=== PATIENT | female | born 1995 | race Caucasian/White ===

== ENCOUNTER 2023-10-01 19:32 | Emergency (ER) | payer OTHER, SELFPAY ==
[2023-10-01 19:37] VITALS: BP 112/76
[2023-10-01 19:57] LABS: % Basophils 0.6 % (0-2); % Immature Granulocytes 0.4 % (0-0.5); % Lymphocytes 29.4 % (20.5-51.1); % Monocytes 8.3 % (1.7-9.3); % Neutrophils 58.3 % (42.2-75.2); Absolute Eosinophils 0.2 10^3/uL (0-0.7); Absolute Lymphocytes 1.5 10^3/uL (1.2-3.4); Absolute Monocytes 0.4 10^3/uL (0.1-0.6); Absolute Neutrophils 2.9 10^3/uL (1.4-6.5); Hematocrit 33.2 % (37.0-47.0); Hemoglobin 11.4 g/dL (12.0-16.0); Mean Corp Hgb Conc. 34.3 g/dL (33.0-37.0); Mean Corpuscular Hgb 29.8 pg (27.0-31.0); Mean Corpuscular Volume 86.7 fL (81.0-99.0); Mean Platelet Volume 8.5 fL (7.4-10.4); Nucleated Red Blood Cells % 0 %; Platelet Count 212 10^3/uL (130-400); Red Blood Cell Count 3.83 10^6/uL (4.20-5.40); Red Cell Dist. Width 13.8 % (11.5-14.5)
[2023-10-01 20:09] LABS: HCG, Serum Qualitative Screen Negative
[2023-10-01 20:15] LABS: ALT (SGPT) 19 U/L (0-35); AST (SGOT) 34 U/L (14-36); Albumin 4.5 g/dl (3.5-5.0); Alkaline Phosphatase 118 U/L (38-126); Blood Urea Nitrogen 8 mg/dl (7-17); Carbon Dioxide 27 mmol/L (22-30); Chloride 98 mmol/L (98-107); Glucose 117 mg/dl (70-99); Potassium 3.6 mmol/L (3.5-5.1); Sodium 130 mmol/L (135-145); Total Bilirubin 0.3 mg/dl (0.2-1.3); Total Protein 7.2 g/dl (6.3-8.2); eGFR > 60.00
--- NOTE | 2023-10-01 21:13 | ED.GENMED ---
History of Present Illness
General
Chief Complaint: Abdominal Symptoms
Source: patient
Exam Limitations: none
Time Seen by Provider: 10/01/23 20:59
Nursing documentation reviewed up to this point in time: agreed with
Travel History
Have you had any contact with someone who has COVID-19?: No
Do you have any symptoms of coronavirus? Fever > 100 degrees, chills, cough, shortness of breath, sore throat, loss of taste or smell, muscle aches, or headache?: No
History of Present Illness
History of Present Illness:
27-year-old female presents with abdominal bloating. She states she was vomiting several x 4 and 3 days ago, no vomiting past 2 days. She is nauseous.
She denies fever or chills. She denies UTI symptoms. She had a normal bowel movement this morning.
Patient has a history of epilepsy, interstitial cystitis and endometriosis, epilepsy, factor V Leiden
Past History
Past History
ED Past Medical History: Seizures, Psychiatric, Other (Factor V Leiden deficiency) and Other (Endometriosis, interstitial cystitis followed by Dr. Jauregui)
ED Past Surgical History: Gynecological
Social History
Tobacco: Non-smoker
Alcohol: None
Drug: None
Personal: Single
Review of Systems
Review of Systems
Allergies reviewed?: Yes
All Other Systems: ROS reviewed and negative except as documented in HPI and ROS
Constitutional: Denies fever, fatigue or chills
Respiratory: Denies trouble breathing
Cardiac: Denies chest pain
ABD/GI: Reports abdominal pain (Abdominal bloating), nausea and vomiting; Denies diarrhea or constipated
: Denies dysuria, frequency, flank pain, difficulty voiding or urgency
Musculoskeletal: Reports no symptoms
Skin: Reports no symptoms
Neurological: Reports no symptoms
Phy Exam
Physical Exam
Physical Exam:
GENERAL: No acute distress. A&Ox3.
CONSTITUTIONAL: Afebrile.
EYES: Clear, conjunctivae normal
ENMT: moist mucus membranes, Pharynx nl
RESPIRATORY: Regular respirations, nonlabored, lungs clear.
CARDIOVASCULAR: Regular rate and rhythm, no murmurs, no rubs.
GI: Soft, nondistended, mildly tender epigastric to left upper quadrant, normal BS
MUSCULOSKELETAL: Moves with ease. Well perfused.
SKIN: Warm, dry, pink
PSYCH: Normal mood and affect. Well kept, interactive and appropriate
NEUROLOGIC: Awake, alert and oriented. No focal neurological deficits
Course
Orders/Labs/Results
Orders:
Orders
10/01/23 19:41
Test Result ONCE
10/01/23 19:47
CMP [Comprehensive Metabolic Panel] Urgent
Complete Blood Count/With Diff Urgent
HCG, Serum Qualitative Screen Urgent
Lipase Urgent
Comment: ADDON
10/01/23 21:13
Add On- LAB Urgent
Tests Added?: Lipase
10/01/23 21:20
CR Abdomen - 1 View Urgent
Comment:
Reason For Exam: feels bloated
Abnormal Lab Results
10/01/23
19:47
RBC 3.83 L 10^6/uL
(4.20-5.40)
Hgb 11.4 L g/dL
(12.0-16.0)
Hct 33.2 L %
(37.0-47.0)
Sodium 130 L mmol/L
(135-145)
Creatinine 0.5 L mg/dL
(0.6-1.0)
Glucose 117 H mg/dl
(70-99)
10/01/23 19:47
10/01/23 19:47
Vital Signs
Initial and Last Documented VS:
Initial Vital Signs
Temp Pulse Resp BP Pulse Ox
97.9 F 92 18 112/76 100
10/01/23 19:37 10/01/23 19:37 10/01/23 19:37 10/01/23 19:37 10/01/23 19:37
Last Documented Vital Signs
Temp Pulse Resp BP Pulse Ox
97.9 F 79 18 101/63 100
10/01/23 19:37 10/01/23 22:26 10/01/23 19:37 10/01/23 22:26 10/01/23 19:37
MDM/Problems Addressed
Differential Diagnosis Includes:
27-year-old female presents with abdominal bloating. She states she was vomiting several x 4 and 3 days ago, no vomiting past 2 days. She is nauseous.
She denies fever or chills. She denies UTI symptoms. She had a normal bowel movement this morning.
Patient has a history of epilepsy, interstitial cystitis and endometriosis, epilepsy, factor V Leiden
10/01/2023 2214 PM
CBC, CMP with no clinically significant abnormality
Flatplate abdomen she has moderate amount of stool, no obstruction
Recommended PPI to use until she sees her GI doctor as scheduled early next month.
Pt ambulated out with normal gait.
*Critical Care Note
Total Time (30-74mins, 75-104mins- exclusive of procedures): Not Applicable
ED Attending Note
-
Portions of this chart may have been created with voice recognition software.� Occasional wrong word or��sound alike� substitutions may have occurred due to the inherent limitations of voice recognition software.
Discharge Plan
Departure
Patient Disposition: Home (Routine Discharge)
Date of Disposition: 10/01/23
Time of Disposition: 22:16
Patient with high blood pressure during this ER visit?: No
Condition: Good
Discharge Problem:
Abdominal bloating
Instructions: Constipation, Adult (DC), Abdominal Pain
Prescriptions:
No Action
hydroxyzine HCl 25 mg Tablet
25 mg PO BIDPRN PRN (Reason: anxiety)
escitalopram oxalate [Lexapro] 20 mg Tablet
20 mg PO DAILY
oxcarbazepine 300 mg Tablet
900 mg PO DAILY Qty: 0 0RF
diazepam [Valium] 2 mg Tablet
2 mg PO BID PRN (Reason: anxiety)
Trileptal
amitriptyline
dicyclomine 10 mg capsule
10 mg PO QID PRN (Reason: abdominal pain) Qty: 10 0RF
Referrals:
Your, GI doctor [Other] - Keep scheduled appt
Sathya Morrison MD [Family Provider] -
Activity Restrictions/Additional Instructions:
As we discussed, your blood work shows nothing worrisome.
Your sodium is a little low but that from vomiting and should correct itself
Your abdominal film shows a lot of stool in your colon. This may make you feel bloated. I have given you instructions for constipation.
Drink plenty of fluids.
Try Omeprazole to decrease the acid in your stomach
Keep your appointment with your GI doctor.
Interventions
Interventions:
*Risk Screen - Suicide Last Done: 10/01/23 19:37
*General Assessment Last Done: 10/01/23 22:15
*Neglect/Abuse Screening Last Done: 10/01/23 19:37
*Nursing Disposition Last Done: 10/01/23 22:26
US-Rvonmu-Nkvpmdpzyx Assessment Last Done: 10/01/23 20:36
Discharge Date and Time
Discharge Date/Time: 10/01/23 22:37
[2023-10-01 21:48] LABS: Lipase 217 U/L (23-300)
[2023-10-01 22:15] VITALS: BP 101/63
[2023-10-01 22:26] VITALS: BP 101/63
== END 2023-10-01 22:37 | disposition home or self-care (01) ==
LOC: EMR 19:32
PROVIDERS: EMERGENCY PHYSICIAN Emergency Medicine; FAMILY PHYSICIAN Internal Medicine
DX: R14.0 Abdominal distension (gaseous) (principal); R11.0 Nausea; N30.10 Interstitial cystitis (chronic) without hematuria; G40.909 Epilepsy, unspecified, not intractable, without status epilepticus; D68.51 Activated protein C resistance
CPT/HCPCS: 99284; 74018; 80053; 83690; 84703; 85025

== ENCOUNTER 2024-02-26 06:45 | Day surgery (SDC) | payer OTHER, SELFPAY ==
[2024-02-23 14:42] LABS: Urine Albumin Negative (Neg - Trace); Urine Bilirubin Negative (Negative); Urine Character Clear (Clear); Urine Color Straw; Urine Glucose Negative (Negative); Urine Ketone Negative (Negative); Urine Leukocyte Negative (Negative); Urine Nitrite Negative (Negative); Urine Occult Blood Negative (Negative); Urine Specific Gravity 1.005 (<1.030); Urine Urobilinogen Negative (Neg - 1+)
[2024-02-26] VITALS (9 sets, daily range): BP systolic 92–115; BP diastolic 62–79; BMI 17.3
[2024-02-26] MEDS: NORMOSOL-R 1000 IV (08:05)
[2024-02-26] MEDS: VALIUM 5 MG PO (09:26)
[2024-02-26] MEDS: Pyridium 200 MG PO (09:26)
[2024-02-26] MEDS: ROXICODONE 5 MG PO (09:59)
== END 2024-02-26 11:10 | disposition home or self-care (01) ==
LOC: SDS 06:45
PROVIDERS: ATTENDING PHYSICIAN Urology; FAMILY PHYSICIAN Internal Medicine
DX: N30.10 Interstitial cystitis (chronic) without hematuria (principal)
CPT/HCPCS: 52204; 52260; 88305; 36415; 81003; 88342

== ENCOUNTER 2024-08-19 06:21 | Day surgery (SDC) | payer OTHER, SELFPAY ==
[2024-08-16 13:01] VITALS: BMI 19.1
[2024-08-16 13:38] LABS: Urine Albumin Negative (Neg - Trace); Urine Bilirubin Negative (Negative); Urine Character Clear (Clear); Urine Color Yellow; Urine Glucose Negative (Negative); Urine Ketone Negative (Negative); Urine Leukocyte Trace (Negative); Urine Nitrite Negative (Negative); Urine Occult Blood Negative (Negative); Urine Specific Gravity 1.015 (<1.030); Urine Urobilinogen Negative (Neg - 1+)
[2024-08-16 13:42] LABS: % Basophils 0.8 % (0-2); % Eosinophils 3.4 % (0-6); % Immature Granulocytes 0.3 % (0-0.5); % Lymphocytes 37.4 % (20.5-51.1); % Monocytes 7.9 % (1.7-9.3); % Neutrophils 50.2 % (42.2-75.2); Absolute Eosinophils 0.1 10^3/uL (0-0.7); Absolute Lymphocytes 1.4 10^3/uL (1.2-3.4); Absolute Monocytes 0.3 10^3/uL (0.1-0.6); Absolute Neutrophils 1.9 10^3/uL (1.4-6.5); Hematocrit 35.2 % (37.0-47.0); Hemoglobin 11.3 g/dL (12.0-16.0); Mean Corp Hgb Conc. 32.1 g/dL (33.0-37.0); Mean Corpuscular Hgb 29.8 pg (27.0-31.0); Mean Corpuscular Volume 92.9 fL (81.0-99.0); Mean Platelet Volume 8.9 fL (7.4-10.4); Nucleated Red Blood Cells % 0 %; Platelet Count 169 10^3/uL (130-400); Red Blood Cell Count 3.79 10^6/uL (4.20-5.40); Red Cell Dist. Width 12.2 % (11.5-14.5); White Blood Cell Count 3.8 10^3/uL (4.8-10.8)
[2024-08-16 13:53] LABS: Urine Bacteria Moderate (Negative); Urine Red Blood Cell 0-2 /HPF (0-2); Urine Squamous Cell >30 /LPF (Few); Urine White Cell 0-2 /HPF (0-5)
[2024-08-16 14:04] LABS: Blood Urea Nitrogen 8 mg/dl (7-17); Calcium 8.9 mg/dl (8.4-10.2); Carbon Dioxide 27 mmol/L (22-30); Chloride 100 mmol/L (98-107); Estimated Creatinine Clearance 99 ml/min; Glucose 87 mg/dl (70-99); Potassium 4.1 mmol/L (3.5-5.1); Sodium 137 mmol/L (135-145); eGFR > 60.00
[2024-08-19] VITALS (7 sets, daily range): BP systolic 101–120; BP diastolic 71–92
[2024-08-19] MEDS: NORMOSOL-R/PLASMALYTE-A 1000 IV (08:38)
[2024-08-19] MEDS: SUBLIMAZE 50 MCG IV (10:56)
[2024-08-19] MEDS: Pyridium 200 MG PO (11:09)
[2024-08-19] MEDS: VALIUM 5 MG PO (11:09)
== END 2024-08-19 13:00 | disposition home or self-care (01) ==
LOC: SDS 06:21
PROVIDERS: ATTENDING PHYSICIAN Urology; FAMILY PHYSICIAN Internal Medicine
PROC: 0T7B8ZZ Dilation of Bladder, Via Natural or Artificial Opening Endoscopic (ICD-10-PCS; 2024-08-19)
DX: N30.10 Interstitial cystitis (chronic) without hematuria (principal)
CPT/HCPCS: 52260; 36415; 80048; 81003; 81015; 85025; 87086

== ENCOUNTER 2024-09-02 06:30 | Day surgery (SDC) | payer OTHER, SELFPAY ==
[2024-09-02 08:55] VITALS: BMI 22.8
[2024-09-02 08:57] VITALS: BMI 22.8
[2024-09-02 08:58] VITALS: BP 94/64
[2024-09-02] MEDS: NORMOSOL-R/PLASMALYTE-A 1000 IV (09:26)
[2024-09-02 10:27] VITALS: BP 102/62
[2024-09-02 10:30] VITALS: BP 100/63
[2024-09-02 10:45] VITALS: BP 100/72
[2024-09-02 11:00] VITALS: BP 101/70
[2024-09-02] MEDS: ROXICODONE 5 MG PO (11:02)
[2024-09-02 13:43] LABS: Urine Albumin 2+ (Neg - Trace); Urine Bilirubin Negative (Negative); Urine Character Cloudy (Clear); Urine Color Yellow; Urine Glucose Negative (Negative); Urine Ketone Negative (Negative); Urine Leukocyte 1+ (Negative); Urine Nitrite Negative (Negative); Urine Occult Blood 1+ (Negative); Urine Urobilinogen 2+ (Neg - 1+)
[2024-09-02 15:27] LABS: Urine Squamous Cell >30 /LPF (Few)
[2024-09-02 15:28] LABS: Urine Amorphous Seen
== END 2024-09-02 11:30 | disposition home or self-care (01) ==
LOC: SDS 06:30
PROVIDERS: ATTENDING PHYSICIAN Urology; FAMILY PHYSICIAN Internal Medicine
PROC: 0JH73BZ Insertion of Single Array Stimulator Generator into Back Subcutaneous Tissue and Fascia, Percutaneous Approach (ICD-10-PCS; 2024-09-02)
PROC: 01HY3MZ Insertion of Neurostimulator Lead into Peripheral Nerve, Percutaneous Approach (ICD-10-PCS; 2024-09-02)
DX: N39.41 Urge incontinence (principal)
CPT/HCPCS: 64590; 64561; 72170; 76000; 81003; 81015; 87086; C1767; C1778; C1787; L8681

== ENCOUNTER 2024-10-08 05:54 | Day surgery (SDC) | payer OTHER, SELFPAY ==
[2024-10-08] VITALS (8 sets, daily range): BP systolic 112–130; BP diastolic 69–102; BMI 19.4
[2024-10-08] MEDS: NORMOSOL-R/PLASMALYTE-A 1000 IV (06:39)
[2024-10-08] MEDS: Pyridium 200 MG PO (06:40)
[2024-10-08] MEDS: VANCOCIN 200 IV (06:41)
[2024-10-08] MEDS: DILAUDID 0.5 MG IV ×2 (07:57→08:08)
[2024-10-08] MEDS: ROXICODONE 5 MG PO (08:46)
== END 2024-10-08 09:30 | disposition home or self-care (01) ==
LOC: SDS 05:54
PROVIDERS: ATTENDING PHYSICIAN Urology
DX: T83.590A Infection and inflammatory reaction due to implanted urinary neurostimulation device, initial encounter (principal); T85.840A Pain due to nervous system prosthetic devices, implants and grafts, initial encounter; Y83.8 Other surgical procedures as the cause of abnormal reaction of the patient, or of later complication, without mention of misadventure at the time of the procedure
CPT/HCPCS: 64595; 72170; 76000; 87070; 87075; 87205

== ENCOUNTER 2024-10-24 17:02 | Emergency (ER) | payer OTHER, SELFPAY ==
[2024-10-24 17:08] VITALS: BP 114/80; BMI 20.9
[2024-10-24 17:09] VITALS: BP 114/80
--- NOTE | 2024-10-24 17:16 | ED.GENMED ---
History of Present Illness
General
Chief Complaint: Seizure
Source: patient and ambulance crew
Exam Limitations: none
Time Seen by Provider: 10/24/24 17:06
History of Present Illness
History of Present Illness:
28yoF with a history of seizures on Lamictal presenting via EMS for evaluation after a seizure less than an hour ago. Patient was a front seat passenger in a car. She was yelling at her kids in the backseat and complaining of low back pain. She
then had a witnessed tonic-clonic seizure. Seizure was described as a fixed gaze and generalized shaking with unresponsiveness. Seizure lasted approximately 15 minutes prior to EMS arrival. There was no incontinence or tongue biting during this
episode. Patient was given 4 mg of Versed upon EMS arrival with resolution of the seizure. EMS reports that upon arrival in the parking lot, she again started to have a fixed gaze and stiffening of her upper extremities. This resolved immediately
after being given a 1 mg dose of Versed followed by a 10 cc normal saline flush. There was no postictal period, no vital sign changes, and EMS states this was consistent with a pseudoseizure. Patient reports some low back pain upon arrival. She
had an Interstim device removed from her low back on 10/08/24 for an infection. She denies any fevers, chills, vomiting. She reports compliance with her Lamictal. She follows with [facility].
Past History
Past History
ED Past Medical History: Seizures, Psychiatric, Other (Factor V Leiden deficiency) and Other (Endometriosis, interstitial cystitis followed by Dr. Jauregui)
ED Past Surgical History: Gynecological
Social History
Tobacco: Non-smoker
Alcohol: None
Drug: None
Personal: Single
Phy Exam
General Physical Exam
General Presentation: well appearing and no apparent distress
General age: appears stated age
General Skin: warm and dry
General Habitus: normal
General Mental: alert
ENT Exam
ENT Exam: normocephalic
Eye Exam
Eye Exam: PERRL
Cardiovascular Exam
Cardiovascular Exam: regular rate/rhythm and no murmur
Pulmonary Exam
Pulmonary Exam: lungs clear, no respiratory distress, no rales, no crackles, no rhonchi and no wheezing
Neurological Exam
Neurological Exam: alert
[place] Coma Scale
Eye Opening: Spontaneous
Verbal Response: Oriented
Motor Response: Obeys Commands
GCS Total Score: 15
Musculoskeletal Exam
Musculoskeletal Exam: other (Scar noted in the R lower lumbar region in location of prior Interstim device. No erythema, warmth, or fluctuance noted.)
Skin Exam
Skin Exam: normal color and warm/dry
Psychiatric Exam
Psychiatric Exam: normal mood/affect
Course
Orders/Labs/Results
Orders:
Orders
10/24/24 17:16
Electrocardiogram (*1) Urgent
Reason for Study: Other
Other Reason for Exam: seizure
EKG- Treatment ONCE
Test Result ONCE
10/24/24 17:19
Complete Blood Count/With Diff Urgent
Comprehensive Metabolic Panel Urgent
HCG, Serum Qualitative Screen Urgent
Magnesium Urgent
10/24/24 17:46
Acetaminophen [Tylenol] 1,000 mg PO NOW STA
10/24/24 18:23
Lamotrigine (Lamictal) [S] Urgent
10/24/24 18:41
Ice Pack-Treatment DIRECTED
Location: low back
Ketorolac [Toradol] 15 mg IV NOW STA
Abnormal Lab Results
10/24/24
17:19
WBC 3.9 L 10^3/uL
(4.8-10.8)
RBC 3.44 L 10^6/uL
(4.20-5.40)
Hgb 10.8 L g/dL
(12.0-16.0)
Hct 32.9 L %
(37.0-47.0)
MCH 31.4 H pg
(27.0-31.0)
MCHC 32.8 L g/dL
(33.0-37.0)
Glucose 101 H mg/dl
(70-99)
10/24/24 17:19
10/24/24 17:19
Vital Signs
Initial and Last Documented VS:
Initial Vital Signs
Temp Pulse Resp BP Pulse Ox
98.0 F 86 16 114/80 100
10/24/24 17:08 10/24/24 17:08 10/24/24 17:08 10/24/24 17:08 10/24/24 17:08
Last Documented Vital Signs
Temp Pulse Resp BP Pulse Ox
98.0 F 85 21 105/67 100
10/24/24 17:08 10/24/24 18:45 10/24/24 18:45 10/24/24 18:01 10/24/24 18:45
MDM/Problems Addressed
Differential Diagnosis Includes:
28yoF here after a seizure. Described as generalized tonic-clonic movements. Lasted 15 minutes. Aborted with Versed. Had a second episode in the ambulance on arrival which EMS states was consistent with a pseudoseizure. Hx of epilepsy. She is awake,
alert, with a GCS of 15 on arrival. VSS. No meningismus or focal deficits appreciated. Differential diagnosis includes but is not limited to: breakthrough seizure, PNES, electrolyte abnormality
Initial ED plan: Check CBC, CMP, HCG, Lamictal level, and EKG.
*EKG
Interpreted by ED Provider?: Yes
EKG Intrepretation Date: 10/24/24
Heart Rate: 88
Rate: normal
Rhythm: sinus
[place]: normal axis
Interval: normal interval
QRS Pattern: normal QRS
Ischemia: no ischemia
*Critical Care Note
Total Time (30-74mins, 75-104mins- exclusive of procedures): Not Applicable
Update Note
Update Note:
Labs unremarkable including normal electrolytes. HCG negative. EKG shows NSR without ectopy or ischemic changes. She remains awake and alert on reassessment and is tolerating PO intake. No indication for hospitalization. 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
active route driver salesperson's license. She was advised to call her neurologist tomorrow for f/u and possible medication adjustments. ED return precautions discussed. Patient in agreement with plan and was discharged in stable condition.
ED Attending Note
-
Portions of this chart may have been created with voice recognition software.� Occasional wrong word or��sound alike� substitutions may have occurred due to the inherent limitations of voice recognition software.
Discharge Plan
Departure
Patient Disposition: Home (Routine Discharge)
Date of Disposition: 10/24/24
Time of Disposition: 18:42
Patient with high blood pressure during this ER visit?: No
Discharge Problem:
Breakthrough seizure
Instructions: Seizures, Adult (DC)
Prescriptions:
No Action
escitalopram oxalate [Lexapro] 20 mg Tablet
20 mg PO DAILY
dicyclomine 10 mg capsule
10 mg PO QID PRN (Reason: abdominal pain) Qty: 10 0RF
hydroxyzine HCl 50 mg Tablet
50 mg PO HS
amitriptyline 10 mg Tablet
30 mg PO HS
flaxseed oil
1 cap PO BID
lamotrigine [Lamictal] 100 mg Tablet
100 mg PO BID
diazepam 5 mg Tablet
5 mg PO TID PRN (Reason: flare ups)
nitrofurantoin monohyd/m-cryst [Macrobid] 100 mg Capsule
100 mg PO Q12H
Referrals:
UNKNOWN - PT NOT,INTERVIEWE [Family Provider] -
Activity Restrictions/Additional Instructions:
Continue taking lamotrigine.
Please call your neurologist tomorrow for further instructions and follow-up. Return to the ER with any worsening symptoms or recurrent seizures within 24 hours.
Interventions
Interventions:
*Risk Screen - Suicide Last Done: 10/24/24 17:08
*General Assessment Last Done: 10/24/24 17:08
*Neglect/Abuse Screening Last Done: 10/24/24 17:08
*ED- Fall Risk Assessment Last Done: 10/24/24 19:23
*ED COVID-19 Vaccine History Last Done: 10/24/24 17:08
*Nursing Disposition Last Done: 10/24/24 19:23
ED- Neurological Assessment Last Done: 10/24/24 17:20
ED- Pulmonary Assessment Last Done: 10/24/24 19:23
Discharge Date and Time
Discharge Date/Time: 10/24/24 19:25
Print Language: TRINIDADIAN
[2024-10-24 17:29] LABS: % Eosinophils 5.4 % (0-6); % Immature Granulocytes 0.3 % (0-0.5); % Lymphocytes 39.3 % (20.5-51.1); % Monocytes 8.4 % (1.7-9.3); % Neutrophils 45.6 % (42.2-75.2); Absolute Eosinophils 0.2 10^3/uL (0-0.7); Absolute Lymphocytes 1.5 10^3/uL (1.2-3.4); Absolute Monocytes 0.3 10^3/uL (0.1-0.6); Absolute Neutrophils 1.8 10^3/uL (1.4-6.5); Hematocrit 32.9 % (37.0-47.0); Hemoglobin 10.8 g/dL (12.0-16.0); Mean Corp Hgb Conc. 32.8 g/dL (33.0-37.0); Mean Corpuscular Hgb 31.4 pg (27.0-31.0); Mean Corpuscular Volume 95.6 fL (81.0-99.0); Mean Platelet Volume 8.7 fL (7.4-10.4); Nucleated Red Blood Cells % 0 %; Platelet Count 197 10^3/uL (130-400); Red Blood Cell Count 3.44 10^6/uL (4.20-5.40); Red Cell Dist. Width 13.1 % (11.5-14.5); White Blood Cell Count 3.9 10^3/uL (4.8-10.8)
[2024-10-24 17:43] LABS: HCG, Serum Qualitative Screen Negative
[2024-10-24 17:47] LABS: ALT (SGPT) 20 U/L (0-35); AST (SGOT) 29 U/L (14-36); Albumin 4.5 g/dl (3.5-5.0); Alkaline Phosphatase 82 U/L (38-126); Blood Urea Nitrogen 14 mg/dl (7-17); Calcium 9.2 mg/dl (8.4-10.2); Carbon Dioxide 28 mmol/L (22-30); Chloride 104 mmol/L (98-107); Estimated Creatinine Clearance 106 ml/min; Glucose 101 mg/dl (70-99); Magnesium 2.2 mg/dl (1.6-2.3); Potassium 4.2 mmol/L (3.5-5.1); Sodium 140 mmol/L (135-145); Total Bilirubin 0.4 mg/dl (0.2-1.3); eGFR > 60.00
[2024-10-24 18:01] VITALS: BP 105/67
[2024-10-24] MEDS: TYLENOL 1000 MG PO (18:23)
[2024-10-24] MEDS: TORADOL 15 MG IV (18:52)
== END 2024-10-24 19:25 | disposition home or self-care (01) ==
LOC: EMR 17:02
PROVIDERS: Physician Assistant; EMERGENCY PHYSICIAN Student in an Organized Health Care Education/Training Program
DX: G40.909 Epilepsy, unspecified, not intractable, without status epilepticus (principal); D68.51 Activated protein C resistance
CPT/HCPCS: 99283; 96374; 80053; 80175; 83735; 84703; 85025; 93005

== ENCOUNTER 2024-11-02 19:26 | Inpatient (IN) | payer OTHER, SELFPAY ==
[2024-11-02] VITALS (13 sets, daily range): BP systolic 90–123; BP diastolic 53–95; BMI 19.3
[2024-11-02 16:52] LABS: Glucose - Point of Care 93 mg/dl (70-99)
[2024-11-02] MEDS: KEPPRA 1000 MG IV ×2 (17:06→23:04)
[2024-11-02] MEDS: ATIVAN 2 MG IV ×2 (17:09→18:26)
[2024-11-02] MEDS: NSS 1000 IV (17:10)
[2024-11-02 17:17] LABS: % Eosinophils 3.8 % (0-6); % Immature Granulocytes 0.3 % (0-0.5); % Monocytes 9.4 % (1.7-9.3); % Neutrophils 38.5 % (42.2-75.2); Absolute Eosinophils 0.2 10^3/uL (0-0.7); Absolute Lymphocytes 1.9 10^3/uL (1.2-3.4); Absolute Monocytes 0.4 10^3/uL (0.1-0.6); Absolute Neutrophils 1.5 10^3/uL (1.4-6.5); Hematocrit 37.3 % (37.0-47.0); Hemoglobin 12.3 g/dL (12.0-16.0); Mean Corpuscular Hgb 31.1 pg (27.0-31.0); Mean Corpuscular Volume 94.2 fL (81.0-99.0); Mean Platelet Volume 8.5 fL (7.4-10.4); Nucleated Red Blood Cells % 0 %; Platelet Count 178 10^3/uL (130-400); Red Blood Cell Count 3.96 10^6/uL (4.20-5.40); Red Cell Dist. Width 12.9 % (11.5-14.5); White Blood Cell Count 3.9 10^3/uL (4.8-10.8)
[2024-11-02 17:20] LABS: Lactic Acid 0.9 mmol/L (0.7-2.0)
[2024-11-02 17:25] LABS: HCG, Serum Qualitative Screen Negative
[2024-11-02 17:30] LABS: ALT (SGPT) 19 U/L (0-35); AST (SGOT) 30 U/L (14-36); Albumin 4.4 g/dl (3.5-5.0); Alkaline Phosphatase 78 U/L (38-126); Blood Urea Nitrogen 12 mg/dl (7-17); Calcium 9.5 mg/dl (8.4-10.2); Carbon Dioxide 27 mmol/L (22-30); Chloride 105 mmol/L (98-107); Creatine Phosphokinase 80 U/L (30-135); Glucose 90 mg/dl (70-99); Potassium 4.3 mmol/L (3.5-5.1); Sodium 139 mmol/L (135-145); Total Bilirubin 0.6 mg/dl (0.2-1.3); Total Protein 7.4 g/dl (6.3-8.2); eGFR > 60.00
[2024-11-02 17:32] LABS: Alcohol None Detected
--- NOTE | 2024-11-02 17:32 | ED.GENMED ---
History of Present Illness
General
Chief Complaint: Seizure
Source: patient, records and ambulance crew
Exam Limitations: clinical condition
Time Seen by Provider: 11/02/24 16:51
Nursing documentation reviewed up to this point in time: agreed with
History of Present Illness
History of Present Illness:
28-year-old female with a past medical history of epilepsy on Lamictal who presents to the emergency department via EMS for seizure. Per EMS they received a call that patient was having active seizure witnessed by family. On their arrival she
appeared to be having a tonic-clonic seizure. She was transported to the emergency room. On the way to the emergency room she received 5 mg of IM Versed. No significant response. Patient cannot provide meaningful history on arrival as she
appears to have active seizure activity total duration of activity roughly 20 minutes per EMS. Chart review shows recent visit for breakthrough seizures last week.
Past History
Past History
ED Past Medical History: Seizures, Psychiatric, Other (Factor V Leiden deficiency) and Other (Endometriosis, interstitial cystitis followed by Dr. Jauregui)
ED Past Surgical History: Gynecological
Social History
Tobacco: Non-smoker
Alcohol: None
Drug: None
Personal: Single
Review of Systems
Review of Systems
Unable to obtain full review of systems at this time due to: due to acuity
All Other Systems: Not applicable
Phy Exam
Physical Exam
Physical Exam:
General: Laying in bed contracted with subtle tonic-clonic movements, foaming at the mouth, not responding to verbal or physical stimuli
Head: Normocephalic, atraumatic
Eyes: Conjunctiva normal, eyes deviated towards the right, pupils reactive to light bilaterally
Throat: Copious oral secretions requiring suctioning
Neck: Trachea midline
Lungs: Clear to auscultation bilaterally, no wheezing, rales, rhonchi
Heart: Tachycardia with regular rhythm, no murmurs, gallops, or rubs
Abd: Soft, non distended, no masses
Neuro: Seizure activity noted
Skin: no rash or signs of trauma
Extremities: Warm and well-perfused
Scores
Heart Failure Risk
Heart Failure Risk Score: Not Applicable
Heart Score for Chest Pain Patients
STEMI patient?: Not applicable
Withdrawal Assessment of Alcohol
Withdrawal Assessment Completed?: Not applicable
Course
Orders/Labs/Results
Orders:
Orders
11/02/24 16:48
Electrocardiogram (*1) Urgent
Reason for Study: Syncope
11/02/24 16:49
EKG- Treatment ONCE
11/02/24 16:50
Drug Screen, Urine [Urine Drug Abuse Screen] Urgent
Date Specimen was Collected: 11/02/24
Time Specimen was Collected: 16:51
Test Result ONCE
11/02/24 16:52
CT Head W/o Iv Contrast Urgent
Comment:
Reason For Exam: seizures
Levetiracetam Injectable [Keppra] 1,000 mg .ROUTE .STK-MED ONE
11/02/24 16:53
Lorazepam [Ativan] 2 mg IM NOW STA
Lorazepam [Ativan] 2 mg IV NOW STA
11/02/24 16:54
Levetiracetam Injectable [Keppra] 1,000 mg IV NOW STA
11/02/24 16:56
Alcohol Urgent
Complete Blood Count/With Diff Urgent
Comprehensive Metabolic Panel Urgent
Creatine Phosphokinase Urgent
HCG, Serum Qualitative Screen Urgent
Keppra (Levetiracetam) [S] Urgent
Lactic Acid Urgent
11/02/24 17:03
NEUROLOGY CONSULT Urgent
Consulting Provider: Yancy Field
Was physician already notified: Yes
11/02/24 17:09
0.9% Sodium Chloride 1000 ml [Nss] 1,000 ml IV BOLUS
Abnormal Lab Results
11/02/24
16:56
WBC 3.9 L 10^3/uL
(4.8-10.8)
RBC 3.96 L 10^6/uL
(4.20-5.40)
MCH 31.1 H pg
(27.0-31.0)
Neutrophils % 38.5 L %
(42.2-75.2)
Monocytes % 9.4 H %
(1.7-9.3)
11/02/24 16:56
11/02/24 16:56
Vital Signs
Initial and Last Documented VS:
Initial Vital Signs
Temp Pulse Resp BP Pulse Ox
37.2 C 112 16 123/95 97
11/02/24 16:48 11/02/24 16:48 11/02/24 16:48 11/02/24 16:48 11/02/24 16:48
Last Documented Vital Signs
Temp Pulse Resp BP Pulse Ox
37.2 C 78 19 95/62 98
11/02/24 16:48 11/02/24 18:00 11/02/24 18:00 11/02/24 18:00 11/02/24 18:00
MDM/Problems Addressed
Differential Diagnosis Includes:
Seizure, pseudoseizure, withdrawal
MDM/Problems Addressed:
28-year-old female presents for evaluation of seizure�witnessed by family, EMS gave 5 mg of IM Versed without improvement. Second visit for breakthrough seizures. She had copious oral secretions on arrival, upper airway suctioned and nasal trumpet
applied; oxygenation acceptable with these measures. She did appear to wince to nasal trumpet insertion. She was given 2 mg of IV Ativan and 1 g of Keppra IV on arrival. Seizure activity stopped at that point but patient still lethargic. Labs
sent off including a CBC and a CMP, lactate, CPK, hCG. Check UDS and alcohol level. Chart review shows no document history of substance use. Will check CT head with multiple breakthrough seizures this week. Plan likely for admission for
monitoring and medication titration, neurology consultation. I did discuss the case with neurology to consult.
Labs reviewed: CBC and CMP no clinically significant abnormalities. She does notably have a normal lactate level and normal CPK which seem inconsistent with diagnosis of prolonged seizure however given continued postictal state and prolonged
episode today will admit for neurology consultation and monitoring for seizure activity. Case discussed with hospitalist for admission.
Reassessment patient still lethargic and postictal. Updated family who are at bedside. Continue to monitor.
Chronic conditions affecting care:
Epilepsy
*Radiology
Radiology exam reviewed: radiology read reviewed
*Pulse Oximetry
Patient hypoxic: no
*EKG
Interpreted by ED Provider?: Yes
Heart Rate: 92
Rate: normal
Rhythm: sinus
[place]: normal axis
Interval: normal interval
QRS Pattern: right bundle branch block (Incomplete)
Ischemia: no ischemia
*Critical Care Note
Total Time (30-74mins, 75-104mins- exclusive of procedures): Not Applicable
Data Reviewed
Review of Other/Old Records Reveals: Labs and Records
Source: patient, records and ambulance crew
Patient Management
Discussion with other providers: Hospitalist (Discussed with hospitalist) and Gear Keeper (Discussed with neurologist)
Escalation/DeEscalation of care consider admission/obs:
Admission indicated
ED Attending Note
-
Portions of this chart may have been created with voice recognition software.� Occasional wrong word or��sound alike� substitutions may have occurred due to the inherent limitations of voice recognition software.
Discharge Plan
Departure
Patient Disposition: Admit
Date of Disposition: 11/02/24
Time of Disposition: 17:43
Admit to doctor: A[facility]
Presentation/result/management discussed w/ accepting MD/DO: Hospitalist
Discharge Problem:
Breakthrough seizure
Prescriptions:
No Action
escitalopram oxalate [Lexapro] 20 mg Tablet
20 mg PO DAILY
dicyclomine 10 mg capsule
10 mg PO QID PRN (Reason: abdominal pain) Qty: 10 0RF
hydroxyzine HCl 50 mg Tablet
50 mg PO HS
amitriptyline 10 mg Tablet
30 mg PO HS
flaxseed oil
1 cap PO BID
lamotrigine [Lamictal] 100 mg Tablet
100 mg PO BID
diazepam 5 mg Tablet
5 mg PO TID PRN (Reason: flare ups)
nitrofurantoin monohyd/m-cryst [Macrobid] 100 mg Capsule
100 mg PO Q12H
Interventions
Interventions:
*Risk Screen - Suicide Last Done: 11/02/24 17:12
*General Assessment Last Done: 11/02/24 16:48
*Neglect/Abuse Screening Last Done: 11/02/24 17:12
*ED COVID-19 Vaccine History Last Done: 11/02/24 16:48
ED- Cardiac Assessment Last Done: 11/02/24 16:48
ED- Neurological Assessment Last Done: 11/02/24 16:48
ED- Pulmonary Assessment Last Done: 11/02/24 16:48
Discharge Date and Time
Print Language: BAHRAINI
--- NOTE | 2024-11-02 18:18 | HPS.HSE ---
Addendum entered and electronically signed by Breanna Chavarria, DO 11/02/24 20:21:
Addition to assessment she has history of chronic cystitis
- She recently had a lumbar stim unit removed
Addendum entered and electronically signed by Breanna Chavarria, DO 11/02/24 20:19:
Have seen and examined the patient. I reviewed the patient with Daniella and agree with her history and physical and assessment and plan of care as per below. The patient is a 28-year-old woman with past medical history significant for epileptic
seizures, had a recent video EEG monitor at an outside hospital that was positive for epileptiform activity per the patient's mom, who presents to the emergency department secondary to witnessed active seizure generalized tonic-clonic. It was
witnessed by her mother. Of note she gets 3-4 seizures per month. EMS was called and she was brought to the emergency department. She received IM Versed [address] to the ED. No loss of bowel or bladder function, no tongue biting;she also
had 2 witnessed seizures in the emergency department. She has had a total of 5 mg of IV Ativan in the emergency department. In between seizures she has been somnolent and sleeping. She did wake up at 1 point and look at me. Right after her
second seizure, she was able to look at me point, at my name and say my name. The ED provider discussed the case with neurology who recommended continuing her on the same dose of Keppra and using Ativan as needed. She is also on Lamictal.
Vital signs stable patient afebrile
Neuro-she had a generalized tonic-clonic seizure when I was in the room with her. Her head went back and she was groaning. Her eyes rolled back in her head. Her right arm and hand contracted in her left arm was rigid.
She was given 1 mg of IV Ativan and she woke up and was able to look at my face and name tag and point to it. No postictal focal neurologic deficits. She is somnolent.
Cardiovascular regular rate and rhythm no murmurs or gallops
Lungs clear to auscultation bilaterally no wheezes rales rhonchi
# Recurrent breakthrough seizure, uncontrolled with underlying known epilepsy
- Appreciate neurology recommendations
- Admit to IMU
- Continue Keppra, and Lamictal
- Use IV Ativan as needed
- Seizure precautions
#depression/ anxiety
- Lexapro�
- Diazepam prn
- Hydroxyzine 25 mg as needed for sleep
- Amitriptyline 30 mg at bedtime
#Factor V Leiden deficiency
#History of CLL at 2 yo
Original Note:
Family Physician
-
Family Physician:
Chief Complaint
-
seizure.
History of Present Illness
28-year-old female with a past medical history of epilepsy on Lamictal who presents to the emergency department via EMS for seizure. Per EMS they received a call that patient was having active seizure witnessed by family. as per family, she does
get 3-4 seizure per month. when she gets the seizure, its multiple times a day. patient denied RODRIGUES,dizzy or syncope. denied fever, chills, chest pain,sob. denied abdominal pain,n,v,d. denied dysuria or hematuria.
Patient received a dose of Keppra, Ativan, normal saline in ER. Admitting for further management
Medical History
Past Medical History
Past Medical History: Reports Other
Additional Past Medical History:
Depression
Cystitis
Endometriosis
Factor V Leyden
Leukemia anxiety depression epilepsy
Past Surgical History: Reports Other
Additional Past Surgical History:
Lab
hydrodistention
InterStim trial, which was removed due to an infection
Social History
Tobacco: Smoker (Half a pack)
Alcohol: None
Drug: None
Living: With Family
Family History
Family History: Not pertinent
Allergies / Home Medications
Allergies reflects when Allergies were last updated in [facility].
Home Medications with original date entered in [facility]
Allergy/Medication List:
Allergies
Allergy/AdvReac Type Severity Reaction Status Date / Time
No Known Allergies Allergy Verified 10/08/24 06:14
Home Medications
escitalopram oxalate 20 mg tablet (Lexapro) 20 mg PO DAILY Mental Health/Anxiety 06/06/22
dicyclomine 10 mg capsule 10 mg PO QID PRN abdominal pain #10 caps 07/23/23
amitriptyline 10 mg tablet 30 mg PO HS 02/21/24
flaxseed oil 1 cap PO BID 02/21/24
hydroxyzine HCl 50 mg tablet 50 mg PO HS 02/21/24
lamotrigine 100 mg tablet (Lamictal) 100 mg PO BID 02/21/24
diazepam 5 mg tablet 5 mg PO TID PRN flare ups 10/07/24
nitrofurantoin monohydrate/macrocrystals 100 mg capsule (Macrobid) 100 mg PO Q12H 10/07/24
Review of Systems
-
Constitutional: Reports No Symptoms
EENT: Reports No Symptoms
Respiratory: Reports No Symptoms
Cardiac: Reports No Symptoms
Abdomen/GI: Reports No Symptoms
: Reports No Symptoms
Musculoskeletal: Reports No Symptoms
Skin: Reports No Symptoms
Neurological: Reports No Symptoms
Endocrine: Reports No Symptoms
Hematologic/Lymphatic: Reports No Symptoms
Psych: Reports No Symptoms
Physical Exam
Vital Signs
Vital Signs
Temp Pulse Resp BP Pulse Ox
98.9 F 78 19 95/62 98
11/02/24 16:48 11/02/24 18:00 11/02/24 18:00 11/02/24 18:00 11/02/24 18:00
Physical Exam
General: Well Developed, Well Nourished and No Apparent Distress
HEENT: NormoCephalic, Moist mucous membranes and Atraumatic
Respiratory: Clear
Cardiac: S1/S2 and Regular Rhythm; No Murmur or Rub
GI: Soft, Non Tender, Non Distended and Normal Bowel Sounds; No Organomegaly
Rectal: Deferred by Provider
Musculoskeletal: No Clubbing, No Cyanosis and No Edema
Skin: No Rash
Neuro: Nonfocal/grossly intact
Psych: Calm
Laboratory Results
-
11/02/24 16:56
11/02/24 16:56
Laboratory Results
Lactic Acid 0.9 mmol/L (0.7-2.0) 11/02/24 16:56
Total Bilirubin 0.6 mg/dl (0.2-1.3) 11/02/24 16:56
AST 30 U/L (14-36) 11/02/24 16:56
ALT 19 U/L (0-35) 11/02/24 16:56
Alkaline Phosphatase 78 U/L (38-126) 11/02/24 16:56
Data Reviewed
-
CT Scan: Report Reviewed by me
Lab Data: Labs Reviewed by me
Impression/Plan
-
# Breakthrough seizure
# History of epilepsy
- Patient received 5 mg IM Versed, 2 mg IV Ativan and 1 g Keppra
- Keppra and Ativan continued
- Neurology consulted
- Head CT with no acute findings
- Lamictal po continued
#depression/ anxiety
- on Lexapro�
- Diazepam
- Hydroxyzine 25 mg as needed for sleep
- Amitriptyline 30 mg at bedtime
#Factor V Leiden deficiency
#History of CLL
SCD
Full code
[2024-11-02] MEDS: ATIVAN 1 MG IV (19:18)
[2024-11-02] MEDS: ELAVIL 30 MG PO (22:48)
[2024-11-02] MEDS: LAMICTAL 100 MG PO (22:49)
[2024-11-02] MEDS: TYLENOL 650 MG PO (22:52)
[2024-11-03] VITALS (11 sets, daily range): BP systolic 82–98; BP diastolic 44–65
--- NOTE | 2024-11-03 04:09 | PTCARENOTE ---
Pt incontinent urine just prior to arrival to floor last night. No void since then. Pt states she does not feel the need to void but did attempt bedpan without result. Attempted to bladder scan but unable to locate any urine. Lower abdomen soft at
present time. Will continue to monitor.
--- NOTE | 2024-11-03 04:26 | PTCARENOTE ---
Addendum entered by Estephania Phillips RN 11/03/24 05:37:
250ml NS bolus ordered and currently infusing. Will continue to monitor.
Original Note:
Pt's BP's have been soft overnight. Currently 84/62 MAP 69. HR 64. Per pt states her systolic at baseline is in the 80's. After she came up from ED last night she received Keppra, Lamictal and Elavil. She is asymptomatic. Hepbryson FERRARI TT'd and made
aware and stated she would look into pt's chart to assess. Waiting to here back. Currently pt resting comfortably sleeping. Remains on seizure precautions. No seizure activity noted since arriving to floor last evening. Call barrera remains within
reach. Will continue to monitor.
[2024-11-03 04:31] LABS: Hematocrit 31.8 % (37.0-47.0); Hemoglobin 10.5 g/dL (12.0-16.0); Mean Platelet Volume 9.2 fL (7.4-10.4); Platelet Count 169 10^3/uL (130-400); Red Blood Cell Count 3.28 10^6/uL (4.20-5.40); Red Cell Dist. Width 12.9 % (11.5-14.5); White Blood Cell Count 4.3 10^3/uL (4.8-10.8)
[2024-11-03] MEDS: NSS 250 IV (05:33)
--- NOTE | 2024-11-03 08:49 | CON.NEURO ---
Consultation
Order
Date of Consultation: 11/03/24
Requesting Provider: Benjamín Siddiqui MD
Reason for Consult: Seizures
Neurology Consultation Note.
HPI: This is a 28-year-old woman who presented to [facility] on 11/02[facility]24 with a spell. According to EMR patient had prolonged bout of abnormal movements lasting over 20 minutes on the day of presentation.
She received 5 mg of diazepam by EMS as well as 5 mg of lorazepam in the ER.
Ms. Mosley reports taking her lamotrigine late on the day of the incident, at 2:30 PM instead of her usual 9 AM dose. Prior to the seizure, she experienced an aura, characterized by feeling slow, and having difficulty finishing sentences. The
seizure occurred in the car after leaving her boyfriend's house. The patient has no recollection of the event and relies on information from her boyfriend and mother.
Yelitza reports a history of both epileptic and non-epileptic seizures starting at the age of 19. She typically experiences cluster seizures. The patient has been prescribed diazepam for 'bladder flare-ups' since May, which she takes as
needed.
Ms. Mosley was reportedly was weaned off Trilepta and kept of Lamictal monotherapy after EMU admission at [facility].
Last seizure was on 10/24/2024. At that time she was seen at ER and had therapeutic Lamictal level.
Additionally, Ms. Mosley reports chronic back pain starting from a recent surgical incision site and extending up her right side. She mentions a recent ER visit on October 14, where a CT scan revealed a pocket of fluid.
Prior AED: LEV, Trileptal
ER VS: 123/95, 112, afebrile
EKG:NSR,QTc Int : 450 ms
PDMP:Diazepam 5 Mg�90 tablets filled in on 10/03/2024, 08/29/2024, 07/18/2024. Oxycodone-Acetaminophen 5-325 10 tablets filled in on 10/08/2024, 09/02/2024 prescribed by urology. Private pay�5
Labs: WBCs�3.9, normal glucose, sodium, creatinine, calcium, CK, prolactine, EtOH�negative
CT head wo contrast�unremarkable.
PMH: focal epilepsy, PNES, factor V Leiden deficiency, urge incontinence, endometriosis, sinus disease, NORBERTO
PSH: InterStim(removed on 10/08/2024)
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
All:Nitrofurantoin
ROS: Constitutional: Negative. Negative for chills, fever and unexpected weight change.
HENT: Negative for ear pain, hearing loss, tinnitus and trouble swallowing.
Eyes: Negative. Negative for photophobia, pain and visual disturbance.
Respiratory: Negative for cough, choking and shortness of breath.
Cardiovascular: Negative for chest pain, palpitations and leg swelling.
Gastrointestinal: Negative for abdominal pain and vomiting.
Endocrine: Negative. Negative for cold intolerance.
Genitourinary: Positive for urinary urgency, bladder spasms
Musculoskeletal: Positive for mild [id number]
Skin: Negative for rash.
Allergic/Immunologic: Negative. Negative for immunocompromised state.
Neurological: Negative for dizziness, tremors, seizures, speech difficulty, numbness and headaches.
General: Well developed. In no acute distress.
Cardio: Regular rate and rhythm without murmur. Extremities are without cyanosis or edema.
Neuro:
Mental Status: Alert, oriented to person, place, and date. Normal attention and recall. Good fund of knowledge. Follows complex requests across the midline. Comprehension, naming, and repetition intact. Immediate and delayed recall 3/3.
Cranial Nerves: Pupils are equally round and reactive to light. EOMs full. Visual ribera full to confrontation. No ptosis. No nystagmus. V1-V3 intact to light touch and pinprick bilaterally, symmetric. Face symmetric. Normal hearing AU. The
palate elevated well. SCMs and traps 5/5. Tongue midline. No dysarthria.
Motor: Normal bulk and tone. No pronator or arm drift. Strength 5/5 throughout. No clonus.
Reflexes: 2+ throughout the upper extremities and knees. 2/2 in AJs. Plantar responses flexor bilaterally.
Sensory: Normal vibration and JPS.
Coordination: No dysmetria or tremor.
Gait: deferred
Assessment and Plan:
I. Focal epilepsy with provoked seizure due to missed dose of AED
II. PNES
III. NORBERTO
-Seizure precautions
-Sleep hygiene
-Increase Lamictal to 150 mg twice daily
-Follow-up urine tox
-No driving
-Use a weekly pill organizer to keep track of doses, set alarms on the phone or watch to remind you of medication times, use medication reminders apps that send notification
-Consider using automatic pill dispenser stat release medications at said time
-Outpatient follow-up with Dr. Genny Greenberg([facility])
I personally reviewed all radiology and labs along with past medical records pertinent to current medical problems. Total time spent in patient care is 60 minutes.
Thank you for allowing us to participate in the care of this patient. Please do not hesitate to contact us with any questions or concerns.
Subjective/Objective
Subjective Data
Date of Service: November 03, 2024
Objective Data
Vital Signs
Temp Pulse Resp BP Pulse Ox
36.4 C 79 17 86/52 100
11/03/24 07:00 11/03/24 08:00 11/03/24 08:00 11/03/24 06:41 11/03/24 08:00
Lab Results
11/03/24 03:31
11/02/24 16:56
Sodium 139 mmol/L (135-145) 11/02/24 16:56
Potassium 4.3 mmol/L (3.5-5.1) 11/02/24 16:56
BUN 12 mg/dl (7-17) 11/02/24 16:56
Glucose 90 mg/dl (70-99) 11/02/24 16:56
Calcium 9.5 mg/dl (8.4-10.2) 11/02/24 16:56
Patient Allergies
No Known Allergies Allergy (Verified 10/08/24 06:14)
Medications
-
Active Medications
Generic Name Dose Route Start Last Admin
Trade Name Freq PRN Reason Stop Dose Admin
Acetaminophen 650 mg 11/02/24 21:44 11/02/24 22:52
Acetaminophen 325 Mg Tablet PO 11/30/24 21:43 650 mg
Q4HPRN PRN Administration
mild pain/RODRIGUES/temp> 100.4F
Amitriptyline HCl 30 mg 11/02/24 22:00 11/02/24 22:48
Amitriptyline 10 Mg Tablet PO 11/30/24 21:59 30 mg
HS KATE Administration
Bisacodyl 10 mg 11/02/24 21:44
Bisacodyl 10 Mg Rectal Suppository RECTAL 11/30/24 21:43
[id number] PRN
constipation
Escitalopram Oxalate 20 mg 11/03/24 08:00
Escitalopram 20 Mg Tablet PO 12/01/24 07:59
DAILY KATE
Lamotrigine 100 mg 11/02/24 21:44 11/02/24 22:49
Lamotrigine 100 Mg Tablet PO 11/30/24 21:43 100 mg
BID KATE Administration
Levetiracetam 1,000 mg 11/02/24 21:44 11/02/24 23:04
Levetiracetam (100 Mg/Ml) 500 Mg/5 Ml Vial IV 11/30/24 21:43 1,000 mg
Q12 KATE Administration
Lorazepam 1 mg 11/02/24 19:21
Lorazepam 2 Mg/Ml Vial IV 11/30/24 19:20
Q4HPRN PRN
seizure
Polyethylene Glycol 17 grams 11/02/24 21:44
Polyethylene Glycol Powder 17 Grams Packet PO 11/30/24 21:43
DAILYPRN PRN
constipation
Senna/Docusate Sodium 1 tablet 11/02/24 21:44
Docusate W/Senna (Margie-Colace) Tablet PO 11/30/24 21:43
BIDPRN PRN
constipation
Home Medications
�Medication �Instructions �Recorded
escitalopram oxalate 20 mg tablet 20 mg PO DAILY Mental 06/06/22
(Lexapro) Health/Anxiety
amitriptyline 10 mg tablet 30 mg PO HS 02/21/24
lamotrigine 100 mg tablet 100 mg PO BID 02/21/24
(Lamictal)
diazepam 5 mg tablet 5 mg PO TID PRN flare ups 10/07/24
flaxseed oil 1,000 mg capsule 1,000 mg PO BID 11/02/24
hydroxyzine HCl 25 mg tablet 25 mg PO HS 11/02/24
phenazopyridine 99.5 mg tablet 99.5 mg PO TID PRN uti prevention 11/02/24
(Azo Urinary Pain Relief)
Vital Signs and Labs
-
Vital Signs and Labs:
Vital Signs
Temp Pulse Resp BP Pulse Ox
36.4 C 79 17 86/52 100
11/03/24 07:00 11/03/24 08:00 11/03/24 08:00 11/03/24 06:41 11/03/24 08:00
Lab Results
11/03/24 03:31
11/02/24 16:56
Sodium 139 mmol/L (135-145) 11/02/24 16:56
Potassium 4.3 mmol/L (3.5-5.1) 11/02/24 16:56
BUN 12 mg/dl (7-17) 11/02/24 16:56
Glucose 90 mg/dl (70-99) 11/02/24 16:56
Calcium 9.5 mg/dl (8.4-10.2) 11/02/24 16:56
Medications
-
Medications:
Generic Name Dose Route Start Last Admin
Trade Name Freq PRN Reason Stop Dose Admin
Acetaminophen 650 mg 11/02/24 21:44 11/02/24 22:52
Acetaminophen 325 Mg Tablet PO 11/30/24 21:43 650 mg
Q4HPRN PRN Administration
mild pain/RODRIGUES/temp> 100.4F
Amitriptyline HCl 30 mg 11/02/24 22:00 11/02/24 22:48
Amitriptyline 10 Mg Tablet PO 11/30/24 21:59 30 mg
HS KATE Administration
Bisacodyl 10 mg 11/02/24 21:44
Bisacodyl 10 Mg Rectal Suppository RECTAL 11/30/24 21:43
[id number] PRN
constipation
Escitalopram Oxalate 20 mg 11/03/24 08:00
Escitalopram 20 Mg Tablet PO 12/01/24 07:59
DAILY KATE
Lamotrigine 100 mg 11/02/24 21:44 11/02/24 22:49
Lamotrigine 100 Mg Tablet PO 11/30/24 21:43 100 mg
BID KATE Administration
Levetiracetam 1,000 mg 11/02/24 21:44 11/02/24 23:04
Levetiracetam (100 Mg/Ml) 500 Mg/5 Ml Vial IV 11/30/24 21:43 1,000 mg
Q12 KATE Administration
Lorazepam 1 mg 11/02/24 19:21
Lorazepam 2 Mg/Ml Vial IV 11/30/24 19:20
Q4HPRN PRN
seizure
Polyethylene Glycol 17 grams 11/02/24 21:44
Polyethylene Glycol Powder 17 Grams Packet PO 11/30/24 21:43
DAILYPRN PRN
constipation
Senna/Docusate Sodium 1 tablet 11/02/24 21:44
Docusate W/Senna (Margie-Colace) Tablet PO 11/30/24 21:43
BIDPRN PRN
constipation
Home Medications
-
Home Medications
escitalopram oxalate 20 mg tablet (Lexapro) 20 mg PO DAILY Mental Health/Anxiety 06/06/22
amitriptyline 10 mg tablet 30 mg PO HS 02/21/24
lamotrigine 100 mg tablet (Lamictal) 100 mg PO BID 02/21/24
diazepam 5 mg tablet 5 mg PO TID PRN flare ups 10/07/24
flaxseed oil 1,000 mg capsule 1,000 mg PO BID 11/02/24
hydroxyzine HCl 25 mg tablet 25 mg PO HS 11/02/24
phenazopyridine 99.5 mg tablet (Azo Urinary Pain Relief) 99.5 mg PO TID PRN uti prevention 11/02/24
[2024-11-03] MEDS: LEXAPRO 20 MG PO (09:07)
[2024-11-03] MEDS: LAMICTAL 100 MG PO (09:07)
[2024-11-03] MEDS: KEPPRA 1000 MG IV (09:07)
--- NOTE | 2024-11-03 10:01 | PTCARENOTE ---
Pt's BP low in the 80s throughout night and this morning. at the bedside and made aware. Patient reports just feeling 'exhausted.' She denies any pain. Pt does report being hungry, patient provided with menu and phone to call for breakfast.
Pt reports no need to void at this time. Assessment, care and VS as charted.
[2024-11-03 10:37] LABS: Prolactin 15.6 ng/ml (3.0-18.6)
--- NOTE | 2024-11-03 12:56 | W.PN.HOSP.TC ---
Today's Communication/Plan
-
Pending neurology eval
Assessment / Plan
Assessment / Plan
Impression :
Patient is 28 years old with history of epilepsy, cystitis with recent bladder treatment, came to the ER with status epilepticus, received Keppra IV in the ER, continued on Lamictal, pending neurology evaluation .
assessment/plan
Recurrent breakthrough seizure, uncontrolled with underlying known epilepsy
Admitted to IMU
CT head negative
For now we will continue Keppra, and Lamictal
- Use IV Ativan as needed
- Seizure precautions
-Pending neurology evaluation
History of depression/ anxiety
- Lexapro�
- Diazepam prn
- Hydroxyzine 25 mg as needed for sleep
- Amitriptyline 30 mg at bedtime
#Factor V Leiden deficiency
#History of CLL at 2 yo
CODE STATUS: Full code
DVT prophylaxis: Lovenox
Diet: Regular diet
Total time spent on today's encounter was 65 minutes which included time spent in counseling the patient/family regarding diagnosis and treatment plan as listed above, goals of care, and symptom management. Case was discussed with nursing staff,
specialists, and care coordinators/case management. All labs and imaging personally reviewed by me. Remainder the time spent in detailed review of previous records, lab data, imaging, and other medical provider documentation.
Anticipated Discharge: > 48 hours
Subjective/Interval History
-
Date of Service: November 03, 2024
Patient admitted yesterday with status practice, received Keppra IV in the ER and Ativan.
Feeling better today, complaining of lumbar back pain from seizure and headaches.
Blood pressure is low but patient stated that is normal for her, pending neurology evaluation.
Objective Data
-
Labs:
Laboratory Results
11/03/24
03:31
WBC 4.3 L
Hgb 10.5 L
Hct 31.8 L
Plt Count 169
Vital Signs:
Vital Signs
Temp Pulse Resp BP Pulse Ox
97.7 F 96 21 82/55 99
11/03/24 11:05 11/03/24 11:00 11/03/24 11:00 11/03/24 10:00 11/03/24 11:28
I&O
11/02/24 11/03/24 11/04/24
06:59 06:59 06:59
Intake Total 550 / 550 480 / 480
Balance 550 / 550 480 / 480
Physical Exam
-
General: Well Developed, Well Nourished, No Apparent Distress and Comfortable
HEENT: Normocephalic, Atraumatic, Moist Mucous Membranes, No Ptosis, PERRLA and Nose Appears Normal
Respiratory: Clear to Auscultation and Non Labored Respirations
Cardiac: Regular Rhythm and S1/S2
Breast: Deferred by me
GI: Soft, Nontender, Nondistended and Normal Bowel Sounds
Genito-urinary: No Costovertebral Tender
Musculoskeletal: No Clubbing, No Cyanosis and No Edema
Skin: Warm
Neuro: Awake, Alert, Oriented, AO x 3 and No Motor Deficits
Psych: Calm
Data Reviewed
-
Diagnostic Radiology: Image personally visualized and interpreted and Report Reviewed by me
CT Scan: Image personally visualized and interpreted and Report Reviewed by me
Ultrasound: Image personally visualized and interpreted and Report Reviewed by me
MRI: Image personally visualized and interpreted and Report Reviewed by me
Medical Tests (Nuc Med, Echo etc): Image personally visualized and interpreted and Report Reviewed by me
Labs: Labs Reviewed by me
Old Records: Reviewed
[2024-11-03] MEDS: TORADOL 30 MG IV (12:59)
--- NOTE | 2024-11-03 13:34 | W.DCSUMMARY ---
Discharge Summary
Discharge Data
Date of Admission: 11/02/24
Date of Discharge: 11/03/24
-
Pending Results: No
Hospital Course
Hospital course
Patient is 28 years old with history of epilepsy, cystitis with recent bladder treatment, came to the ER with status epilepticus, received Keppra IV in the ER, continued on Lamictal, seen by neurology who recommended increasing Lamictal to 150 twice
daily and discharge.
During hospitalization patient was treated [facility]
Recurrent breakthrough seizure, uncontrolled with underlying known epilepsy
Admitted to IMU
CT head negative
For now we will continue Keppra, and Lamictal
- Use IV Ativan as needed
- Seizure precautions
seen by neurology who recommended increasing Lamictal to 150 twice daily and discharge.
History of depression/ anxiety
- Lexapro�
- Diazepam prn
- Hydroxyzine 25 mg as needed for sleep
- Amitriptyline 30 mg at bedtime
#Factor V Leiden deficiency
#History of CLL at 2 yo
CODE STATUS: Full code
DVT prophylaxis: Lovenox
Diet: Regular diet
Total time spent on today's encounter was 40 minutes which included time spent in counseling the patient/family regarding diagnosis and treatment plan as listed above, goals of care, and symptom management. Case was discussed with nursing staff,
specialists, and care coordinators/case management. All labs and imaging personally reviewed by me. Remainder the time spent in detailed review of previous records, lab data, imaging, and other medical provider documentation.
Anticipated Discharge: Today
Discharge Plan
-
Patient Disposition: Home (Routine Discharge)
Discharge Diagnosis/Procedures: Seizure
Condition: Good
Diet: As tolerated
Activity: As tolerated
Driving Restrictions: No driving
Referrals:
Ronceverte, neurology [Other]
Sathya Morrison MD [Family Provider] -
Prescriptions:
New
lamotrigine [Lamictal] 150 mg tablet
150 mg PO BID 30 Days Qty: 60 0RF
Continued
escitalopram oxalate [Lexapro] 20 mg Tablet
20 mg PO DAILY
amitriptyline 10 mg Tablet
30 mg PO HS
diazepam 5 mg Tablet
5 mg PO TID PRN (Reason: flare ups)
flaxseed oil 1,000 mg Capsule
1,000 mg PO BID
hydroxyzine HCl 25 mg Tablet
25 mg PO HS
Azo Urinary Pain Relief 99.5 mg Tablet
99.5 mg PO TID PRN (Reason: uti prevention)
Discontinued
lamotrigine [Lamictal] 100 mg Tablet
100 mg PO BID
Discharge Orders:
Discharge Patient (As Directed); Ordered 11/03/24
Ordered By: Jean Allen
Discharge Date and Time
Print Language: URDU
--- NOTE | 2024-11-03 14:02 | CM ---
Pt reports she lives in a split level home; 5STE, 5 steps to bed/bath
Independent with ADL's, Employed PT
DME - rolling walker
SNF - no past hx
HH - has in past - unsure of agency
Has ride at discharge
PCP - Sathya Morrison
Pharm - [facility]
Given information on Advance Directives
Plan - home no needs anticipated
[2024-11-04 18:26] LABS: Keppra (Levetiracetam) 78 ug/mL (10-40)
== END 2024-11-03 15:18 | disposition home or self-care (01) | DRG 101 ==
LOC: IMU 19:26
PROVIDERS: Registered Nurse; ADMITTING PHYSICIAN Internal Medicine; ATTENDING PHYSICIAN General Practice; CONSULT PHYSICIAN Psychiatry & Neurology Neurology; EMERGENCY PHYSICIAN Emergency Medicine; FAMILY PHYSICIAN Internal Medicine
DX: G40.001 Localization-related (focal) (partial) idiopathic epilepsy and epileptic syndromes with seizures of localized onset, not intractable, with status epilepticus (principal); D68.51 Activated protein C resistance; N80.9 Endometriosis, unspecified; I45.10 Unspecified right bundle-branch block; N30.20 Other chronic cystitis without hematuria; R40.0 Somnolence; F32.A Depression, unspecified; F41.9 Anxiety disorder, unspecified; F17.210 Nicotine dependence, cigarettes, uncomplicated; G89.29 Other chronic pain; M54.50 Low back pain, unspecified; N39.41 Urge incontinence; R51.9 Headache, unspecified; R03.1 Nonspecific low blood-pressure reading; Z85.6 Personal history of leukemia
CPT/HCPCS: 70450; 80053; 80177; 82077; 82550; 82962; 83605; 84146; 84703; 85025; 85027; 93005; 96361; 96372; 96374; 96375; 96376; 99285; 99406

== ENCOUNTER 2024-11-05 16:56 | Emergency (ER) | payer OTHER, SELFPAY ==
[2024-11-05 17:00] VITALS: BP 117/69
--- NOTE | 2024-11-05 17:02 | ED.GENMED ---
History of Present Illness
General
Chief Complaint: Seizure
Source: patient, records and ambulance crew
Exam Limitations: none
Time Seen by Provider: 11/05/24 16:57
Nursing documentation reviewed up to this point in time: agreed with
History of Present Illness
History of Present Illness:
28-year-old female with past medical history as noted significant for seizures presents to the emergency department via EMS for evaluation of seizure. Per EMS report patient was in the passenger seat of the car with family member when she started
to have seizure activity. EMS was called to the scene and on their arrival she appeared to be having tonic-clonic activity. She was given 5 mg of IM Versed. Symptoms improved. Transported to the emergency room. Here she is very
lethargic/postictal and not able to meaningfully participate in history. Of note patient was seen in this emergency room 11/02/2024 with similar presentation and was admitted, seen by neurology for breakthrough seizures and ultimately discharged.
During the hospitalization her Lamictal was increased to 150 mg twice daily.
Past History
Past History
ED Past Medical History: Seizures, Psychiatric, Other (Factor V Leiden deficiency) and Other (Endometriosis, interstitial cystitis followed by Dr. Jauregui)
ED Past Surgical History: Gynecological
Social History
Tobacco: Non-smoker
Alcohol: None
Drug: None
Personal: Single
Review of Systems
Review of Systems
Unable to obtain full review of systems at this time due to: due to acuity
All Other Systems: Not applicable
Phy Exam
Physical Exam
Physical Exam:
General: Lying in bed lethargic, no verbal response, does wince to pain
Head: Normocephalic, atraumatic
Eyes: Conjunctiva normal, pupils 6 mm and briskly reactive to light bilaterally; she does seem to be tracking across visual field
Throat: Airway intact, handling secretions
Neck: Trachea midline, supple without meningismus
Lungs: Clear to auscultation bilaterally, no wheezing, rales, rhonchi
Heart: Regular rate and rhythm, no murmurs, gallops, or rubs
Abd: Soft, non distended, no apparent tenderness, no masses
Neuro: Very lethargic, not consistently following commands; no gross cranial nerve deficits, localizes to pain in all extremities
Extremities: Warm and well-perfused, no signs of acute trauma, good pulses in all extremities; old bruises from prior IVs
Scores
Heart Failure Risk
Heart Failure Risk Score: Not Applicable
Heart Score for Chest Pain Patients
STEMI patient?: Not applicable
Withdrawal Assessment of Alcohol
Withdrawal Assessment Completed?: Not applicable
Course
Orders/Labs/Results
Orders:
Orders
11/05/24 16:59
Drug Screen, Urine [Urine Drug Abuse Screen] Urgent
0.9% Sodium Chloride 1000 ml [Nss] 1,000 ml IV BOLUS
Lorazepam [Ativan] 2 mg IV NOW STA
Test Result ONCE
11/05/24 17:02
NEUROLOGY CONSULT Urgent
Consulting Provider: Ray Knox
Was physician already notified: Yes
11/05/24 17:03
Electrocardiogram (*1) Urgent
Reason for Study: QTc Monitoring
EKG- Treatment ONCE
11/05/24 17:10
Alcohol Urgent
CPK [Creatine Phosphokinase] Urgent
Complete Blood Count/With Diff Urgent
Comprehensive Metabolic Panel Urgent
HCG, Serum Qualitative Screen Urgent
Lactate Level [Lactic Acid] Urgent
Abnormal Lab Results
11/05/24
17:10
WBC 4.5 L 10^3/uL
(4.8-10.8)
RBC 3.70 L 10^6/uL
(4.20-5.40)
Hgb 11.7 L g/dL
(12.0-16.0)
Hct 35.1 L %
(37.0-47.0)
MCH 31.6 H pg
(27.0-31.0)
11/05/24 17:10
11/05/24 17:10
Vital Signs
Initial and Last Documented VS:
Initial Vital Signs
Temp Pulse Resp BP Pulse Ox
37.0 C 86 16 117/69 100
11/05/24 17:00 11/05/24 17:00 11/05/24 17:00 11/05/24 17:00 11/05/24 17:00
Last Documented Vital Signs
Temp Pulse Resp BP Pulse Ox
37.0 C 76 19 99/68 100
11/05/24 17:00 11/05/24 18:30 11/05/24 18:30 11/05/24 18:00 11/05/24 18:00
MDM/Problems Addressed
Differential Diagnosis Includes:
Seizure, pseudoseizure
MDM/Problems Addressed:
28-year-old female presents with seizure-like activity. Recent admission with similar presentation, AEDs were increased at that time. Today apparently had witnessed tonic-clonic activity while in the car with the family member. EMS called and
gave her a dose of Versed 5 mg IM. Transported to the emergency room. Here she is lethargic either postictal or secondary to Versed. Physical exam as above. Will place an IV send labs including a CBC and a CMP, CPK, lactate, hCG. Will send tox
screen. Case discussed with neurology for bedside assessment given recent history. Monitor for seizure activity, benzos as needed. Hold on repeat head imaging given recent imaging within the past week and known history of seizures. Reassess
after the above.
Labs reviewed: CBC and CMP no clinically significant abnormalities. hCG negative. Clinical reassessment patient is completely back to baseline awake and alert, eating a sandwich. Vital signs been stable. She says she feels much better.
Neurology evaluated at bedside�currently patient has history of seizures and pseudoseizures she feels this episode is more likely pseudoseizures. Stable from neurology perspective for discharge without medication adjustments. Patient comfortable
with going home. Family at bedside will drive her. All questions answered.
Chronic conditions affecting care:
Seizures/epilepsy
*Pulse Oximetry
Patient hypoxic: no
*Critical Care Note
Total Time (30-74mins, 75-104mins- exclusive of procedures): Not Applicable
Data Reviewed
Review of Other/Old Records Reveals: Labs and Records
Source: patient, records and ambulance crew
Patient Management
Discussion with other providers: Grocery Stock Clerk (Discussed with neurology)
ED Attending Note
-
Portions of this chart may have been created with voice recognition software.� Occasional wrong word or��sound alike� substitutions may have occurred due to the inherent limitations of voice recognition software.
Discharge Plan
Departure
Patient Disposition: Home (Routine Discharge)
Date of Disposition: 11/05/24
Time of Disposition: 18:52
Patient with high blood pressure during this ER visit?: No
Discharge Problem:
Seizure
Instructions: Seizures, Adult (DC)
Prescriptions:
No Action
escitalopram oxalate [Lexapro] 20 mg Tablet
20 mg PO DAILY
amitriptyline 10 mg Tablet
30 mg PO HS
diazepam 5 mg Tablet
5 mg PO TID PRN (Reason: flare ups)
flaxseed oil 1,000 mg Capsule
1,000 mg PO BID
hydroxyzine HCl 25 mg Tablet
25 mg PO HS
Azo Urinary Pain Relief 99.5 mg Tablet
99.5 mg PO TID PRN (Reason: uti prevention)
lamotrigine [Lamictal] 150 mg tablet
150 mg PO BID 30 Days Qty: 60 0RF
Referrals:
UNKNOWN,NO INTERVIEW [Family Provider] -
Activity Restrictions/Additional Instructions:
Thank you for visiting the Emergency Department at [facility].
1. Please schedule a follow up appointment as directed. Call first thing tomorrow morning to make an appointment.
2. If indicated, please take your medications as instructed and indicated on discharge paperwork.
3. If any of your symptoms do not improve, or persist, or become more severe within 6-12 hours, please return to the emergency department for further care.
4. Please return to the emergency department if you develop a headache, neck pain/stiffness, fever greater than 100.4F, chest pain, shortness of breath, persistent nausea, vomiting, slurred speech, difficulty walking, numbness/tingling, weakness,
signs of infection or any other symptoms that are worrisome to you.
Please call [phone] if you have any questions.
Interventions
Interventions:
*Risk Screen - Suicide Last Done: 11/05/24 17:00
*General Assessment Last Done: 11/05/24 17:00
*Neglect/Abuse Screening Last Done: 11/05/24 17:00
*ED- Fall Risk Assessment Last Done: 11/05/24 17:00
*ED COVID-19 Vaccine History Last Done: 11/05/24 17:00
ED- Cardiac Assessment Last Done: 11/05/24 17:00
ED- Neurological Assessment Last Done: 11/05/24 17:00
ED- Pulmonary Assessment Last Done: 11/05/24 17:00
Discharge Date and Time
Print Language: [place] ISLAND[place]
[2024-11-05] MEDS: ATIVAN 2 MG IV (17:14)
[2024-11-05] MEDS: NSS 1000 IV (17:14)
[2024-11-05 17:26] LABS: % Basophils 0.7 % (0-2); % Eosinophils 2.7 % (0-6); % Immature Granulocytes 0.2 % (0-0.5); % Lymphocytes 33.9 % (20.5-51.1); % Neutrophils 56.5 % (42.2-75.2); Absolute Eosinophils 0.1 10^3/uL (0-0.7); Absolute Lymphocytes 1.5 10^3/uL (1.2-3.4); Absolute Monocytes 0.3 10^3/uL (0.1-0.6); Absolute Neutrophils 2.5 10^3/uL (1.4-6.5); Hematocrit 35.1 % (37.0-47.0); Hemoglobin 11.7 g/dL (12.0-16.0); Mean Corp Hgb Conc. 33.3 g/dL (33.0-37.0); Mean Corpuscular Hgb 31.6 pg (27.0-31.0); Mean Corpuscular Volume 94.9 fL (81.0-99.0); Mean Platelet Volume 8.7 fL (7.4-10.4); Nucleated Red Blood Cells % 0 %; Platelet Count 162 10^3/uL (130-400); Red Cell Dist. Width 12.5 % (11.5-14.5); White Blood Cell Count 4.5 10^3/uL (4.8-10.8)
[2024-11-05 17:30] LABS: HCG, Serum Qualitative Screen Negative
[2024-11-05 17:35] LABS: ALT (SGPT) 17 U/L (0-35); AST (SGOT) 29 U/L (14-36); Albumin 4.8 g/dl (3.5-5.0); Alkaline Phosphatase 67 U/L (38-126); Blood Urea Nitrogen 7 mg/dl (7-17); Calcium 9.7 mg/dl (8.4-10.2); Carbon Dioxide 29 mmol/L (22-30); Chloride 104 mmol/L (98-107); Glucose 94 mg/dl (70-99); Potassium 4.1 mmol/L (3.5-5.1); Sodium 140 mmol/L (135-145); Total Bilirubin 0.4 mg/dl (0.2-1.3); Total Protein 7.5 g/dl (6.3-8.2); eGFR > 60.00
[2024-11-05 17:36] LABS: Creatine Phosphokinase 86 U/L (30-135)
[2024-11-05 17:38] LABS: Alcohol None Detected
--- NOTE | 2024-11-05 17:46 | CON.NEURO ---
Neuro Assessment/Plan
Assessment
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
she feels well enough to go home
Plan
continue LTG 150 BID
no need to call EMS or come to ED for habitual events whether seizure or PNES
Outpatient follow-up with Dr. Genny Greenberg([facility])
Consultation
Order
Date of Consultation: 11/05/24
Requesting Provider: Benjamín Siddiqui Jr
Reason for Consult: seizures
Subjective/Objective
Subjective Data
Date of Service: November 05, 2024
She is a 28 year old woman h/o epilepsy and PNES since age 19. She is able to differentiate between the two, and tells me that today she had a non-epileptic event. She was passenger in a car wiht family, had seizure like activity, EMS was called and
patient appeared to have tonic clonic activity, she was given Versed 5 mg IM, resolved. In the ED, appeared sedated/post-ictal; by the time of my evaluation she was awake and conversant
admitted 4/5 for what appeared to be an epileptic event in the setting of late Lamictal dose; seen by Dr Field and Lamictal increased to 150 BID
Objective Data
Vital Signs
Temp Pulse Resp BP Pulse Ox
37.0 C 78 22 117/69 100
11/05/24 17:00 11/05/24 17:30 11/05/24 17:30 11/05/24 17:00 11/05/24 17:30
Lab Results
11/05/24 17:10
11/05/24 17:10
Sodium 140 mmol/L (135-145) 11/05/24 17:10
Potassium 4.1 mmol/L (3.5-5.1) 11/05/24 17:10
BUN 7 mg/dl (7-17) 11/05/24 17:10
Glucose 94 mg/dl (70-99) 11/05/24 17:10
Calcium 9.7 mg/dl (8.4-10.2) 11/05/24 17:10
Patient Allergies
No Known Allergies Allergy (Verified 10/08/24 06:14)
Physical Exam
-
awake, slow to process, flat affect
Medications
-
Active Medications
Generic Name Dose Route Start Last Admin
Trade Name Freq PRN Reason Stop Dose Admin
Sodium Chloride 1,000 mls @ 1,000 mls/hr 11/05/24 16:59 11/05/24 17:14
Nss IV 11/05/24 17:58 1,000 mls
BOLUS ONE Administration
Home Medications
�Medication �Instructions �Recorded
escitalopram oxalate 20 mg tablet 20 mg PO DAILY Mental 06/06/22
(Lexapro) Health/Anxiety
amitriptyline 10 mg tablet 30 mg PO HS 02/21/24
diazepam 5 mg tablet 5 mg PO TID PRN flare ups 10/07/24
flaxseed oil 1,000 mg capsule 1,000 mg PO BID 11/02/24
hydroxyzine HCl 25 mg tablet 25 mg PO HS 11/02/24
phenazopyridine 99.5 mg tablet 99.5 mg PO TID PRN uti prevention 11/02/24
(Azo Urinary Pain Relief)
lamotrigine 150 mg tablet 150 mg PO BID 30 days #60 tabs 11/03/24
(Lamictal)
[2024-11-05 18:00] VITALS: BP 99/68
== END 2024-11-05 19:28 | disposition home or self-care (01) ==
LOC: EMR 16:56
PROVIDERS: CONSULT PHYSICIAN Psychiatry & Neurology Clinical Neurophysiology; EMERGENCY PHYSICIAN Emergency Medicine
DX: G40.909 Epilepsy, unspecified, not intractable, without status epilepticus (principal); D68.51 Activated protein C resistance; Z79.899 Other long term (current) drug therapy
CPT/HCPCS: 96374; 96361; 99284; 80053; 82077; 82550; 83605; 84703; 85025; 93005

== ENCOUNTER 2024-11-06 18:43 | Emergency (ER) | payer OTHER, SELFPAY ==
[2024-11-06] VITALS (7 sets, daily range): BP systolic 117–133; BP diastolic 72–102; BMI 20.4
[2024-11-06 18:52] LABS: Glucose - Point of Care 89 mg/dl (70-99)
--- NOTE | 2024-11-06 18:52 | ED.GENMED ---
History of Present Illness
General
Chief Complaint: Seizure
Source: ambulance crew
Exam Limitations: clinical condition
Time Seen by Provider: 11/06/24 18:48
History of Present Illness
History of Present Illness:
See MDM
Past History
Past History
ED Past Medical History: Seizures, Psychiatric, Other (Factor V Leiden deficiency) and Other (Endometriosis, interstitial cystitis followed by Dr. Jauregui)
ED Past Surgical History: Gynecological
Social History
Tobacco: Non-smoker
Alcohol: None
Drug: None
Personal: Single
Phy Exam
Physical Exam
Physical Exam:
See MDM
Course
Orders/Labs/Results
Orders:
Orders
11/06/24 18:48
Urine Drug Abuse Screen Urgent
Levetiracetam Injectable [Keppra] 2,000 mg IV NOW STA
Test Result ONCE
11/06/24 18:56
Electrocardiogram (*1) Urgent
Reason for Study: Other
Other Reason for Exam: seizure
EKG- Treatment ONCE
11/06/24 18:57
Complete Blood Count/With Diff Urgent
Comprehensive Metabolic Panel Urgent
HCG, Serum Qualitative Screen Urgent
Abnormal Lab Results
11/06/24
18:57
WBC 4.7 L 10^3/uL
(4.8-10.8)
RBC 3.71 L 10^6/uL
(4.20-5.40)
Hgb 11.6 L g/dL
(12.0-16.0)
Hct 35.5 L %
(37.0-47.0)
MCH 31.3 H pg
(27.0-31.0)
MCHC 32.7 L g/dL
(33.0-37.0)
11/06/24 18:57
11/06/24 18:57
Vital Signs
Initial and Last Documented VS:
Initial Vital Signs
Temp Pulse Resp BP Pulse Ox
98.6 F 86 18 120/74 100
11/06/24 18:46 11/06/24 18:46 11/06/24 18:46 11/06/24 18:46 11/06/24 18:46
Last Documented Vital Signs
Temp Pulse Resp BP Pulse Ox
98.6 F 95 15 129/97 99
11/06/24 18:46 11/06/24 20:15 11/06/24 20:15 11/06/24 20:00 11/06/24 20:00
MDM/Problems Addressed
Differential Diagnosis Includes:
HPI and MDM Narrative:
28-year-old female presenting for evaluation of status epilepticus. EMS indicated that she was seizing at home for approximately 20 minutes until they arrived. They gave 4 mg of IV Versed and then called for medical command. I authorized another
2 mg of IV Versed since she was still in status. On arrival, patient is calm and sedated. No seizure activity. I quickly looked up her records and she has a history of epilepsy and PNES. She was recently admitted where neurology increased her
Lamictal dose. She came back to the emergency department where neurology believe that her symptoms were psychogenic
When I entered the room, patient has a blank stare and is nonverbal. When I leave the room, she starts tracking with her eyes and paying attention. Neurology made aware and we discussed not giving any more medications and will continue to monitor
Physical exam
General: Appears sedated and sleepy
HEENT: protecting airway. Pupils equal reactive
Neck: appears supple
CV: No evidence of cyanosis
Resp: No accessory muscle use
Abd: Non-distended
Extremities: No deformities
Neuro: alert. Intermittently following commands and tracking with eyes
Psych: Flat affect
Skin: Intact
Problems Addressed including Acute and Chronic Conditions affecting care:
1. Seizure
Acuity: acute
Prognosis: stable
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 Neurology aware
Updates
On multiple reassessments, patient appears to have seizure-like activity. She is grunting with her eyes rolled back and eyelids open. However, she has no muscle jerking. When I try to evaluate her eyes, she closes them shut.
7:45 PM patient awake and alert and speaking in full sentences
8:26 PM boyfriend at bedside. Patient awake and alert and feels comfortable going home
Differential Diagnosis (but not limited to): Psychogenic seizures, epilepsy
Testing considered: CT head
Drug therapy (if applicable): OTC meds, please see d/c instruction regarding Rx drugs
Amount and/or Complexity of Data Reviewed
Clinical info obtained from: Patient
External data reviewed: Recent visits to emergency department where her seizure activity was deemed to be psychogenic
Labs I independently reviewed (but not limited to): White blood cell count normal. Bicarb normal
Radiology: N/A
Pulse Ox: not hypoxic
EKG independently reviewed: Sinus rhythm, normal axis, no STEMI
Correctional Program Specialist: Sinus rhythm
Critical Care: N/A
Risk of Complication:
Social Determinants of health: Good social support
Discussed with other providers: Neurologist
Escalation of Care includes Admit/Obs: After being observed in the Emergency Department, pt stable for discharge.
Occasional wrong word or 'sound a like' substitutions may have occurred due to the inherent limitations of voice recognition software. Read the chart carefully and recognize, using context, where substitutions have occurred.
*Critical Care Note
Total Time (30-74mins, 75-104mins- exclusive of procedures): Not Applicable
ED Attending Note
-
Portions of this chart may have been created with voice recognition software.� Occasional wrong word or��sound alike� substitutions may have occurred due to the inherent limitations of voice recognition software.
Discharge Plan
Departure
Patient Disposition: Home (Routine Discharge)
Date of Disposition: 11/06/24
Time of Disposition: 20:27
Patient with high blood pressure during this ER visit?: No
Discharge Problem:
Seizure-like activity
Prescriptions:
No Action
escitalopram oxalate [Lexapro] 20 mg Tablet
20 mg PO DAILY
amitriptyline 10 mg Tablet
30 mg PO HS
diazepam 5 mg Tablet
5 mg PO TID PRN (Reason: flare ups)
flaxseed oil 1,000 mg Capsule
1,000 mg PO BID
hydroxyzine HCl 25 mg Tablet
25 mg PO HS
Azo Urinary Pain Relief 99.5 mg Tablet
99.5 mg PO TID PRN (Reason: uti prevention)
lamotrigine [Lamictal] 150 mg tablet
150 mg PO BID 30 Days Qty: 60 0RF
Referrals:
Sathya Morrison MD [Family Provider] -
Activity Restrictions/Additional Instructions:
Please return for any worsening symptoms.
You may return at any time if you have further concerns.
Please follow up with your doctor at the first available appointment, preferably this week.
Thank you for choosing [facility].
Interventions
Interventions:
*Risk Screen - Suicide Last Done: 11/06/24 18:46
*General Assessment Last Done: 11/06/24 18:46
*Neglect/Abuse Screening Last Done: 11/06/24 18:46
*ED- Fall Risk Assessment Last Done: 11/06/24 18:58
*ED COVID-19 Vaccine History Last Done: 11/06/24 18:58
ED- Cardiac Assessment Last Done: 11/06/24 19:19
ED- Neurological Assessment Last Done: 11/06/24 19:19
ED- Pulmonary Assessment Last Done: 11/06/24 19:19
Discharge Date and Time
Print Language: LAO
[2024-11-06 19:04] LABS: % Basophils 0.6 % (0-2); % Eosinophils 3.8 % (0-6); % Immature Granulocytes 0.2 % (0-0.5); % Monocytes 7.9 % (1.7-9.3); % Neutrophils 53.5 % (42.2-75.2); Absolute Eosinophils 0.2 10^3/uL (0-0.7); Absolute Lymphocytes 1.6 10^3/uL (1.2-3.4); Absolute Monocytes 0.4 10^3/uL (0.1-0.6); Absolute Neutrophils 2.5 10^3/uL (1.4-6.5); Hematocrit 35.5 % (37.0-47.0); Hemoglobin 11.6 g/dL (12.0-16.0); Mean Corp Hgb Conc. 32.7 g/dL (33.0-37.0); Mean Corpuscular Hgb 31.3 pg (27.0-31.0); Mean Corpuscular Volume 95.7 fL (81.0-99.0); Mean Platelet Volume 8.7 fL (7.4-10.4); Nucleated Red Blood Cells % 0 %; Platelet Count 169 10^3/uL (130-400); Red Blood Cell Count 3.71 10^6/uL (4.20-5.40); Red Cell Dist. Width 12.9 % (11.5-14.5); White Blood Cell Count 4.7 10^3/uL (4.8-10.8)
[2024-11-06 19:22] LABS: HCG, Serum Qualitative Screen Negative
[2024-11-06 19:26] LABS: ALT (SGPT) 18 U/L (0-35); AST (SGOT) 32 U/L (14-36); Albumin 4.8 g/dl (3.5-5.0); Alkaline Phosphatase 79 U/L (38-126); Blood Urea Nitrogen 9 mg/dl (7-17); Calcium 9.4 mg/dl (8.4-10.2); Carbon Dioxide 25 mmol/L (22-30); Chloride 105 mmol/L (98-107); Estimated Creatinine Clearance 120 ml/min; Glucose 91 mg/dl (70-99); Sodium 139 mmol/L (135-145); Total Bilirubin 0.5 mg/dl (0.2-1.3); Total Protein 7.5 g/dl (6.3-8.2); eGFR > 60.00
== END 2024-11-06 20:43 | disposition home or self-care (01) ==
LOC: EMR 18:43
PROVIDERS: EMERGENCY PHYSICIAN Student in an Organized Health Care Education/Training Program; FAMILY PHYSICIAN Internal Medicine
DX: R56.9 Unspecified convulsions (principal); D68.51 Activated protein C resistance
CPT/HCPCS: 99283; 96374; 80053; 82962; 84703; 85025; 93005

== ENCOUNTER 2024-12-04 16:38 | Emergency (ER) | payer SELFPAY ==
[2024-12-04] VITALS (11 sets, daily range): BP systolic 95–112; BP diastolic 53–76; BMI 19.9
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
[2024-12-04] MEDS: ATIVAN 2 MG IV (17:09)
[2024-12-04 17:16] LABS: % Basophils 0.7 % (0-2); % Eosinophils 0.7 % (0-6); % Immature Granulocytes 0.2 % (0-0.5); % Lymphocytes 34.7 % (20.5-51.1); % Monocytes 4.8 % (1.7-9.3); % Neutrophils 58.9 % (42.2-75.2); Absolute Monocytes 0.3 10^3/uL (0.1-0.6); Absolute Neutrophils 3.3 10^3/uL (1.4-6.5); Hematocrit 34.7 % (37.0-47.0); Hemoglobin 11.4 g/dL (12.0-16.0); Mean Corp Hgb Conc. 32.9 g/dL (33.0-37.0); Mean Corpuscular Hgb 31.3 pg (27.0-31.0); Mean Corpuscular Volume 95.3 fL (81.0-99.0); Mean Platelet Volume 8.6 fL (7.4-10.4); Nucleated Red Blood Cells % 0 %; Platelet Count 209 10^3/uL (130-400); Red Blood Cell Count 3.64 10^6/uL (4.20-5.40); Red Cell Dist. Width 12.1 % (11.5-14.5); White Blood Cell Count 5.7 10^3/uL (4.8-10.8)
[2024-12-04 17:29] LABS: ALT (SGPT) 16 U/L (0-35); AST (SGOT) 28 U/L (14-36); Albumin 4.5 g/dl (3.5-5.0); Alkaline Phosphatase 63 U/L (38-126); Blood Urea Nitrogen 5 mg/dl (7-17); Calcium 9.3 mg/dl (8.4-10.2); Carbon Dioxide 26 mmol/L (22-30); Chloride 110 mmol/L (98-107); Estimated Creatinine Clearance 116 ml/min; Glucose 90 mg/dl (70-99); Potassium 4.3 mmol/L (3.5-5.1); Sodium 146 mmol/L (135-145); Total Bilirubin 0.5 mg/dl (0.2-1.3); Total Protein 7.4 g/dl (6.3-8.2); eGFR > 60.00
[2024-12-04 17:58] LABS: Prolactin 15.8 ng/ml (3.0-18.6)
[2024-12-04 18:22] LABS: Alcohol 212 mg/dl
[2024-12-05] VITALS (9 sets, daily range): BP systolic 98–114; BP diastolic 62–85
[2024-12-05 02:51] LABS: Amphetamines Negative (Negative); Barbiturates Negative (Negative); Benzodiazepines Positive (Negative); Buprenorphine Negative (Negative); Cocaine Negative (Negative); Marijuana Negative (Negative); Methadone Negative (Negative); Methamphetamines Negative (Negative); Opiates Negative (Negative); Phencyclidine Negative (Negative); Tricyclic Antidepressants Positive (Negative)
[2024-12-05 03:11] LABS: Fentanyl, Urine Negative (Negative)
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
== END 2024-12-05 13:24 | disposition home or self-care (01) ==
LOC: EMR 16:38
PROVIDERS: CONSULT PHYSICIAN Psychiatry & Neurology Psychiatry; EMERGENCY PHYSICIAN Emergency Medicine
DX: R45.851 Suicidal ideations (principal); D68.51 Activated protein C resistance; R56.9 Unspecified convulsions
CPT/HCPCS: 99285; 80053; 80306; 80307; 82077; 84146; 85025

== ENCOUNTER 2025-03-15 21:03 | Emergency (ER) | payer SELFPAY ==
[2025-03-15 21:07] VITALS: BP 105/70
[2025-03-15 21:12] VITALS: BP 105/70
[2025-03-15 21:36] LABS: Hematocrit 35.3 % (37.0-47.0); Hemoglobin 11.5 g/dL (12.0-16.0); Mean Corp Hgb Conc. 32.6 g/dL (33.0-37.0); Mean Corpuscular Volume 88.9 fL (81.0-99.0); Nucleated Red Blood Cells % 0 %; Platelet Count 207 10^3/uL (130-400); Red Cell Dist. Width 14.1 % (11.5-14.5)
[2025-03-15 21:42] LABS: INR 0.96; PT 13.1 Sec (11.4-14.6)
[2025-03-15 21:43] LABS: APTT 26.2 Sec (23.4-35.0)
[2025-03-15 21:46] VITALS: BMI 20.7
[2025-03-15 21:54] LABS: Glucose - Point of Care 90 mg/dl (70-99)
[2025-03-15 21:57] LABS: Troponin I < 0.012 ng/ml
[2025-03-15] MEDS: NSS 1000 IV (21:59)
[2025-03-15 22:01] VITALS: BP 92/62
--- NOTE | 2025-03-15 22:03 | ED.GENMED ---
History of Present Illness
General
Chief Complaint: Seizure
Source: patient
Exam Limitations: none
Time Seen by Provider: 03/15/25 21:14
Nursing documentation reviewed up to this point in time: agreed with
History of Present Illness
History of Present Illness:
Note:
CHIEF COMPLAINT(S)
Seizures
HISTORY OF PRESENT ILLNESS
The patient is a 29-year-old female who presented with a seizure episode or potential pseudo-seizure. The symptoms began approximately 45 minutes prior to the encounter. Upon arrival, the patient appeared postictal. Initially, the patient was given
15 milligrams of midazolam intramuscularly (10 mg followed by an additional 5 mg). An additional 5 mg of midazolam was administered intravenously, after which the patient became more alert and responsive, albeit with slightly slurred speech.
The patient was questioned about her history of seizures and current medications. She indicated that she takes seizure medications, although she could not recall their names. She denied missing any doses on the day of the episode.
REVIEW OF SYSTEMS
- Neurological: History of seizures, current episode with postictal state, slightly slurred speech initially
PHYSICAL EXAM
General: Alert, no acute distress, at time of discharge. Upon arrival patient was having seizures despite getting 15 mg of Versed and various forms
Skin: Warm, dry.
Head: Normocephalic, atraumatic.
Neck: Supple, trachea midline.
Eye, Ears, Nose, Mouth, and Throat: Oral mucosa moist.
Cardiovascular: Normal peripheral perfusion, No edema.
Respiratory: Respirations are non-labored.
Gastrointestinal: Abdomen nondistended
Back: Normal range of motion, Normal alignment.
Musculoskeletal: Normal range of motion, normal strength.
Neurological: Alert and oriented to person, place, time, and situation, No focal neurological deficit observed at time of discharge, patient ambulated with a brisk and steady gait
Psychiatric: Appropriate mood and affect at time of discharge.
PROBLEM LIST
Acute:
- Seizure episode
PLAN
- Monitor patients neurological status.
- Continue seizure medication regimen as prescribed.
- Follow up with neurology for further evaluation and management.
DIFFERENTIAL DIAGNOSIS
The Differential Diagnosis includes, in no particular order and is not limited to:
1. Epileptic seizure
2. Pseudo-seizure (Psychogenic non-epileptic seizure)
3. Hypoglycemia
4. Drug-induced seizures
5. Alcohol withdrawal seizure
6. Intracranial mass or lesion
7. Meningitis or encephalitis
8. Electrolyte imbalance
9. Stroke or Transient Ischemic Attack
10. Neurological disorder (e.g., Multiple Sclerosis)
CARE-UPDATE
03/15/25 - 22:17
Discuss[address] with Dr[address] Ray Zavaleta from neurology. He reviewed the [facility] data and concluded that the patient is experiencing an acute left frontal seizure. There is no evidence of status epilepticus.
Disposition:
SUMMARY OF ENCOUNTER
The patient, a 29-year-old female, presented to the emergency department experiencing seizure-like activity. Upon arrival, she continued to exhibit seizure-like symptoms despite administration of midazolam (Versed) prior to arrival. An EEG performed
at the bedside showed left frontal seizure-like activity. The patient became alert, oriented, and expressed her desire to leave the emergency department, stating the call to 911 was an error as initiated by her boyfriend due to the newness of the
situation. She declined further treatment in the ER.
DISPOSITION
The patient signed out against medical advice (AMA) and was discharged with seizure-like activity.
ASSESSMENT
The patient has a history of seizures; current symptoms are consistent with left frontal seizure-like activity observed on EEG. She declined further assessment and treatment.
MEDICATION RECONCILIATION
Midazolam was administered prior to arrival.
MEDICAL DECISION MAKING
- Complexity of Data Reviewed: Chronic conditions affecting care include a history of seizures.
- Data:
- My independent review of the EEG indicates left frontal seizure-like activity.
- Risk:
- Due to the patients decision to leave AMA, considerations for continued assessment and management of seizures were limited. The situation involves a risk of complications due to potential untreated or uncontrolled seizures.
DIAGNOSIS
- G40.909 Epilepsy, unspecified, not intractable, without status epilepticus
Past History
Past History
ED Past Medical History: Seizures, Psychiatric, Other (Factor V Leiden deficiency) and Other (Endometriosis, interstitial cystitis followed by Dr. Jauregui)
ED Past Surgical History: Gynecological
Social History
Tobacco: Non-smoker
Alcohol: None
Drug: None
Personal: Single
Phy Exam
Physical Exam
Physical Exam:
.
Course
Orders/Labs/Results
Orders:
Orders
03/15/25 21:12
Midazolam HCl [Versed] 5 mg .ROUTE .STK-MED ONE
03/15/25 21:14
CT Head W/o Iv Contrast Urgent
Comment:
Reason For Exam: continued seizure
Bedside Glucose- Treatment ONCE
IV Insert/Care/Rem.- Treatment PRN
0.9% Sodium Chloride 1000 ml [Nss] 1,000 ml IV BOLUS
Ceribell [Rapid Point of Care EEG (ED/ICU ONLY)] Q1H
Indications for use:: History of Epilepsy
Comment: stat ep
03/15/25 21:15
Electrocardiogram (*1) Stat
Reason for Study: Other
Other Reason for Exam: neuro symptoms
EKG- Treatment ONCE
03/15/25 21:27
Complete Blood Count/With Diff Urgent
Erythrocyte Sed Rate Urgent
PTT Urgent
Prothrombin Time Urgent
Troponin I Urgent
03/15/25 22:01
Alcohol Urgent
Comprehensive Metabolic Panel Urgent
03/15/25 22:35
Levetiracetam Injectable [Keppra] 1,000 mg IV NOW STA
Abnormal Lab Results
03/15/25 03/15/25
21:27 22:01
WBC 3.7 L 10^3/uL
(4.8-10.8)
RBC 3.97 L 10^6/uL
(4.20-5.40)
Hgb 11.5 L g/dL
(12.0-16.0)
Hct 35.3 L %
(37.0-47.0)
MCHC 32.6 L g/dL
(33.0-37.0)
Absolute Lymphs (auto) 1.1 L 10^3/uL
(1.2-3.4)
Monocytes % 10.1 H %
(1.7-9.3)
Chloride 112 H mmol/L
(98-107)
Carbon Dioxide 21 L mmol/L
(22-30)
03/15/25 21:27
03/15/25 22:01
Vital Signs
Initial and Last Documented VS:
Initial Vital Signs
Temp Pulse Resp BP Pulse Ox
98.1 F 118 20 105/70 99
03/15/25 21:07 03/15/25 21:07 03/15/25 21:07 03/15/25 21:07 03/15/25 21:07
Last Documented Vital Signs
Temp Pulse Resp BP Pulse Ox
98.1 F 109 25 128/77 97
03/15/25 21:07 03/15/25 22:30 03/15/25 22:30 03/15/25 22:30 03/15/25 22:00
*Radiology
Radiology exam reviewed: radiology read reviewed
*Pulse Oximetry
SaO2: 99
Oxygen Mode of Delivery: Room air
Patient hypoxic: no
*Critical Care Note
Total Time (30-74mins, 75-104mins- exclusive of procedures): 32 (Critical care statement: A total of 32 minutes of critical care time was provided for this patient. This time is separate from time utilized to perform the aforementioned documented
procedures. Aggregate critical care time includes only time during which I was engaged in work directl)
ED Attending Note
-
Portions of this chart may have been created with voice recognition software.� Occasional wrong word or��sound alike� substitutions may have occurred due to the inherent limitations of voice recognition software.
Discharge Plan
Departure
Patient Disposition: Against Medical Advice
Discharge Problem:
Breakthrough seizure
Prescriptions:
No Action
escitalopram oxalate [Lexapro] 20 mg Tablet
20 mg PO DAILY
amitriptyline 10 mg Tablet
30 mg PO HS
diazepam 5 mg Tablet
5 mg PO TID PRN (Reason: flare ups)
flaxseed oil 1,000 mg Capsule
1,000 mg PO BID
hydroxyzine HCl 25 mg Tablet
25 mg PO HS
Azo Urinary Pain Relief 99.5 mg Tablet
99.5 mg PO TID PRN (Reason: uti prevention)
lamotrigine [Lamictal] 150 mg tablet
150 mg PO BID 30 Days Qty: 60 0RF
Referrals:
UNKNOWN - PT NOT,INTERVIEWE [Family Provider]
Interventions
Interventions:
*Risk Screen - Suicide Last Done: 03/15/25 21:07
*General Assessment Last Done: 03/15/25 21:07
*Neglect/Abuse Screening Last Done: 03/15/25 21:07
*Nursing Disposition Last Done: 03/15/25 23:53
ED- Cardiac Assessment Last Done: 03/15/25 23:35
ED- Neurological Assessment Last Done: 03/15/25 23:35
ED- Pulmonary Assessment Last Done: 03/15/25 23:35
Discharge Date and Time
Print Language: LUXEMBOURGISH
[2025-03-15 22:30] VITALS: BP 128/77
[2025-03-15 22:31] LABS: ALT (SGPT) 14 U/L (0-35); AST (SGOT) 26 U/L (14-36); Albumin 4.5 g/dl (3.5-5.0); Alkaline Phosphatase 88 U/L (38-126); Blood Urea Nitrogen 8 mg/dl (7-17); Calcium 9.1 mg/dl (8.4-10.2); Carbon Dioxide 21 mmol/L (22-30); Chloride 112 mmol/L (98-107); Estimated Creatinine Clearance 104 ml/min; Glucose 78 mg/dl (70-99); Potassium 4.0 mmol/L (3.5-5.1); Sodium 143 mmol/L (135-145); Total Protein 7.6 g/dl (6.3-8.2); eGFR > 60.00
--- NOTE | 2025-03-16 18:04 | EEGC.RPT ---
Continuous EEG Report
Recording
Start Date of Data Reviewed: 03/15/25
Start Time of Data Reviewed: 09:18
End Date of Data Reviewed: 03/15/25
End Time of Data Reviewed: 10:35
Report
Clinical Background:�seizure
Introduction: An emergent EEG was done using Ceribell device in the ED.
total recording time 1 hr 13 mins
Background: In the most alert state, the there is continuous generalized slowing with polymorphic theta activity and some overriding beta activity. There is spontaneous variability.
Sleep: No sleep is seen.�
Focal/epileptiform: focal seizure consists of frequent bursts of left hemispheric rhythmic delta or left frontal rhythmic delta. interictal T3 sharps. clarity AI reads seizure burden up to 5%
Impression: focal seizure left hemisphere with epileptogenicity. Moderate generalized cerebral dysfunction
== END 2025-03-15 23:53 | disposition left against medical advice (07) ==
LOC: EMR 21:03
PROVIDERS: EMERGENCY PHYSICIAN Student in an Organized Health Care Education/Training Program
DX: G40.909 Epilepsy, unspecified, not intractable, without status epilepticus (principal); Z53.29 Procedure and treatment not carried out because of patient's decision for other reasons; D68.51 Activated protein C resistance
CPT/HCPCS: 96360; 99291; 70450; 80053; 82077; 82962; 84484; 85025; 85610; 85652; 85730; 93005